=== PATIENT | female | born 1960 | race Caucasian/White ===

== ENCOUNTER 2020-07-11 16:33 | Outpatient (CLI) | payer OTHER, SELFPAY ==
--- NOTE | ~2020-07-11 | MM_ITS ---
EXAMINATION: MM screening m[facility]ille BI w celio HISTORY: Screening TECHNIQUE: Craniocaudal and mediolateral oblique 3-D tomosynthesis images were obtained and synthetic 2-D images were generated. CAD analysis was submitted and interpreted. COMPARISON: Comparison to multiple prior studies sequentially, with oldest reviewed study dated 10/2014. BREAST PARENCHYMAL COMPOSITION: There are scattered areas of fibroglandular density. FINDINGS: There is no evidence of suspicious mass, calcification, or architectural distortion to sugg est malignancy in either breast. There has been no suspicious interval change. IMPRESSION: 1. No mammographic evidence of malignancy. 2. Recommend routine screening mammography in one year. BI-RADS Category 1: Negative Reviewed, dictated and finalized at location A. AIDE
== END 2020-07-11 16:34 | disposition home or self-care (01) ==
LOC: ANHIMG 16:34
PROVIDERS: PCP Internal Medicine; Visit Provider Internal Medicine
DX: Z12.31 Encounter for screening mammogram for malignant neoplasm of breast (principal)
CPT/HCPCS: 77063; 77067

== ENCOUNTER 2021-02-28 14:47 | Outpatient (CLI) | payer OTHER, SELFPAY ==
--- NOTE | 2021-02-28 | ECHO_ITS ---
Patient Info Name: Samantha Dominguez Age: 60 years : 1960 Gender: Female Ht: 65 in Wt: 205 lbs BSA: 2.10 m2 HR: 78 bpm BP: 164 / 109 mmHg Heart Rhythm: Sinus Rhythm Technical Quality: Fair Exam Date: 02/28/2021 3:49 PM Exam Location: [facility] Pulmonary Patient Status: Outpatient Admit Date: 02/28/2021 Staff Ordering Physician: Xochitl Hammond MD Stapler Hand: Janey Bruner RDCS Attending Provider: Xochitl Hammond MD Referring Physician: Luis Enrique ELLISON; Exam Type: CA echo doppler color flow Study Info Indications - PREMATURE HEART BEATS Complete two-dimensional, color flow and Doppler transthoracic echocardiogram is performed. Summary 1. Complete two-dimensional, color flow and Doppler transthoracic echocardiogram is performed. 2. Left ventricular chamber dimension is normal. 3. Left ventricular systolic function is normal, estimated at 55-60%. 4. The left ventricular diastolic function is grade I diastolic dysfunction. 5. There is no aortic valve stenosis. 6. There is trace tricuspid valve regurgitation. 7. No pulmonary hypertension, estimated pulmonary arterial systolic pressure is 19 mmHg. Left Ventricle Left ventricular chamber dimension is normal. Left ventricular systolic function is normal, estimated at 55-60%. There is no increased left ventricular wall thickness. The left ventricular diastolic function is grade I diastolic dysfunction. Right Ventricle Right ventricular chamber dimension is normal. Right ventricular systolic function is normal. Left Atria Left atrial chamber dimension is normal. Right Atria Right atrial chamber dimension is normal. Aortic Valve The aortic valve is not well visualized. There is no aortic valve stenosis. There is no aortic valve regurgitation. Pulmonic Valve The pulmonic valve is not well visualized. Mitral Valve The mitral valve has normal leaflets. There is trace mitral valve regurgitation. The mitral valve annulus is mildly calcified. Tricuspid Valve The tricuspid valve leaflets are normal. There is trace tricuspid valve regurgitation. No pulmonary hypertension, estimated pulmonary arterial systolic pressure is 19 mmHg. Pericardium/Pleural The pericardium appears normal. There is no pericardial effusion. Inferior Vena Cava Normal inferior vena cava with >50% collapse upon inspiration consistent with normal right atrial pressure, 5 mmHg. Aorta The aortic root size at the sinus of Valsalva is normal. There is mild aortic atherosclerosis. Left Ventricular Outflow Tract Name Value Normal LVOT 2D LVOT Diameter 2.0 cm LVOT Doppler LVOT Peak Gradient 4 mmHg LVOT Mean Gradient 3 mmHg LVOT VTI 22 cm LVOT VTI/AV VTI Ratio 0.9 LVOT Stroke Volume 67 ml LVOT CO 14.4 l/min LVOT CI 6.8 l/min/m2 Pulmonic Valve Name
== END 2021-02-28 14:48 | disposition home or self-care (01) ==
PROVIDERS: PCP Internal Medicine; Visit Provider Internal Medicine
DX: I49.3 Ventricular premature depolarization (principal)
CPT/HCPCS: 93306

== ENCOUNTER 2021-03-12 10:15 | Outpatient (CLI) | payer OTHER, SELFPAY ==
--- NOTE | 2021-03-12 | EST_ITS ---
Patient Info Name: Samantha Dominguez Age: 60 years : 1960 Gender: Female Ht: 65 in Wt: 206 lbs BSA: 2.11 m2 Exam Date: 03/12/2021 10:33 AM Exam Location: [facility] Stress Patient Status: Outpatient Admit Date: 03/12/2021 Staff Ordering Physician: JanuaryXochitl MD Attending Provider: JanuaryXochitl MD Exercise Technologist: Leigha Tierney RDCS Exercise Physician: Priyank Ann MD Exam Type: CA stress test treadmill Study Info Indications R94.31 - Abnormal electrocardiogram ECG EKG A treadmill exercise stress test was performed. Summary 1. Normal ST segment response to stress. 2. Below average exercise capacity for age. 3. Hypertensive blood pressure response exercise. Protocol: [facility] Stress ECG Details Stage: REST Duration (min): 2 min : 56 sec Speed (mph): 0.0 Grade (%): 0 HR (bpm): 93 SBP (mmHg): 168 DBP (mmHg): 107 METS: --- Stage: REST Duration (min): 3 min : 45 sec Speed (mph): 0.0 Grade (%): 0 HR (bpm): 106 SBP (mmHg): 168 DBP (mmHg): 107 METS: --- Stage: STAGE 1 Duration (min): 1 min : 0 sec Speed (mph): 1.7 Grade (%): 10 HR (bpm): 113 SBP (mmHg): 168 DBP (mmHg): 107 METS: --- Stage: STAGE 1 Duration (min): 2 min : 0 sec Speed (mph): 1.7 Grade (%): 10 HR (bpm): 122 SBP (mmHg): 168 DBP (mmHg): 107 METS: --- Stage: STAGE 1 Duration (min): 3 min : 0 sec Speed (mph): 1.7 Grade (%): 10 HR (bpm): 130 SBP (mmHg): 197 DBP (mmHg): 92 METS: --- Stage: STAGE 2 Duration (min): 1 min : 0 sec Speed (mph): 2.5 Grade (%): 12 HR (bpm): 137 SBP (mmHg): 197 DBP (mmHg): 92 METS: --- Stage: STAGE 2 Duration (min): 1 min : 5 sec Speed (mph): 2.5 Grade (%): 12 HR (bpm): 138 SBP (mmHg): 197 DBP (mmHg): 92 METS: --- Stage: RECOVERY Duration (min): 0 min : 54 sec Speed (mph): 0.0 Grade (%): 0 HR (bpm): 131 SBP (mmHg): 211 DBP (mmHg): 80 METS: --- Stage: RECOVERY Duration (min): 1 min : 54 sec Speed (mph): 0.0 Grade (%): 0 HR (bpm): 119 SBP (mmHg): 211 DBP (mmHg): 80 METS: --- Stage: RECOVERY Duration (min): 2 min : 54 sec Speed (mph): 0.0 Grade (%): 0 HR (bpm): 105 SBP (mmHg): 203 DBP (mmHg): 87 METS: --- Stage: RECOVERY Duration (min): 3 min : 54 sec Speed (mph): 0.0 Grade (%): 0 HR (bpm): 106 SBP (mmHg): 203 DBP (mmHg): 87 METS: --- Stage: RECOVERY Duration (min): 4 min : 49 sec Speed (mph): 0.0 Grade (%): 0 HR (bpm): 103 SBP (mmHg): 197 DBP (mmHg): 92 METS: --- Rest HR: 106 bpm Peak HR: 139 bpm Rest Sys BP: 168 mmHg Peak Sys BP: 211 mmHg Max Pred HR: 161 bpm % Max Pred HR: 86 % Target HR: 137 bpm Max RPP: 29,329 bpm*mmHg Thomas Score: 1 Target HR Summary: Patient's target heart rate
== END 2021-03-12 10:16 | disposition home or self-care (01) ==
PROVIDERS: PCP Internal Medicine; Visit Provider Internal Medicine
DX: I49.40 Unspecified premature depolarization (principal); R94.31 Abnormal electrocardiogram [ECG] [EKG]
CPT/HCPCS: 93017

== ENCOUNTER 2021-08-21 14:55 | Outpatient (CLI) | payer OTHER, SELFPAY ==
--- NOTE | ~2021-08-21 | MM_ITS ---
EXAMINATION: MM screening mireille BI w celio HISTORY: Screening mammogram TECHNIQUE: Craniocaudal and mediolateral oblique 3-D tomosynthesis images were obtained and synthetic 2-D images were generated. CAD analysis was submitted and interpreted. COMPARISON: 07/11/2020, 05/31/2019 bilateral screening mammogram examinations BREAST PARENCHYMAL COMPOSITION: There are scattered areas of fibroglandular density. FINDINGS: There is no evidence of suspicious mass, calcification, or architectural distortion to sugg est malignancy in either breast. There has been no suspicious interval change. IMPRESSION: 1. No mammographic evidence of malignancy. 2. Recommend routine screening mammography in one year. BI-RADS Category 1: Negative Reviewed, dictated and finalized at location A. ILIZER SUPERVISOR
== END 2021-08-21 14:56 | disposition home or self-care (01) ==
LOC: ANHIMG 14:58
PROVIDERS: PCP Internal Medicine; Visit Provider Internal Medicine
DX: Z12.31 Encounter for screening mammogram for malignant neoplasm of breast (principal)
CPT/HCPCS: 77063; 77067

== ENCOUNTER 2023-02-02 10:14 | Outpatient (CLI) | payer OTHER, SELFPAY ==
--- NOTE | ~2023-02-02 | MM_ITS ---
EXAMINATION: MM screening [facility] BI w celio HISTORY: Screening mammogram TECHNIQUE: Craniocaudal and mediolateral oblique 3-D tomosynthesis images were obtained and synthetic 2-D images were generated. CAD analysis was submitted and interpreted. COMPARISON: 08/21/2021, 07/11/2020, 05/31/2019 BREAST PARENCHYMAL COMPOSITION: There are scattered areas of fibroglandular density. FINDINGS: No suspicious mass, calcification, or architectural distortion are identified in either philip ast to suggest malignancy. There has been no suspicious interval change. IMPRESSION: 1. No mammographic evidence of malignancy. 2. Recommend routine screening mammography in one year. BI-RADS Category 1: Negative Reviewed, dictated and finalized at location A.
== END 2023-02-02 10:15 | disposition home or self-care (01) ==
LOC: ANHIMG 10:15
PROVIDERS: PCP Internal Medicine; Visit Provider Internal Medicine
DX: Z12.31 Encounter for screening mammogram for malignant neoplasm of breast (principal)
CPT/HCPCS: 77063; 77067

== ENCOUNTER 2023-02-03 10:26 | Emergency (ER) | payer OTHER, SELFPAY ==
--- NOTE | 2023-02-03 10:40 | ED.FEMALEGU ---
HPI - Female Genitourinary General Chief complaint: Urogenital-Female Stated complaint: Female Urogenital Time Seen by Provider: 02/03/23 11:17 Source: patient and RN notes reviewed Mode of arrival: ambulatory Limitations: no limitations History of Present Illness HPI Narrative: 62 year old female with history of diabetes presents with concern for urinary frequency, urgency, dysuria. She reports she is having vaginal itching for which she just started deqz-dri-cfvccoa yeast infection treatment. She denies back pain, reports nausea. Reports intermittent chills. MD elicited complaint: UTI Related Data Home Medications Medication Instructions Recorded Confirmed dulaglutide 0.75 mg/0.5 mL mg subcut 02/03/23 subcutaneous pen injector (Trulicity) lisinopril 10 mg tablet mg 02/03/23 lithium carbonate 300 mg capsule mg 02/03/23 quetiapine 100 mg tablet mg 02/03/23 tramadol 50 mg tablet mg 02/03/23 Allergies Allergy/AdvReac Type Severity Reaction Status Date / Time No Known Allergies Allergy Verified 08/27/17 07:45 Review of Systems Review of Systems: CONSTITUTIONAL: Denies malaise, sweats, or fever. Reports intermittent chills CARDIOVASCULAR: Denies chest pain, palpitations, or edema. RESPIRATORY: Denies cough or dyspnea. GASTROINTESTINAL: Denies abdominal pain, nausea, vomiting, diarrhea GENITOURINARY: Reports dysuria, frequency, urgency. Denies flank pain or hematuria. SKIN: Reports vaginal itching MUSCULOSKELETAL: Denies back pain or myalgia. All systems reviewed & are unremarkable except as noted in HPI and below PMFSH Comments At time of signature, agree with nursing past medical, surgical, social and family history. There is no relevant family history pertinent to the presenting complaint Exam Narrative: GENERAL: Well-appearing, well-nourished, and in no acute distress. HEAD: Normocephalic. EYES: PERRLA, conjunctivae clear. NECK: Supple. No lymphadenopathy CHEST: Clear to auscultation. No respiratory distress. HEART: Regular rate and rhythm. ABDOMEN: Soft, nontender upon palpation, nondistended, normal active bowel sounds, no palpable or pulsatile masses, no guarding. No CVA tenderness SKIN: Warm, dry, no rash. NEURO: Alert and oriented x3. PSYCH: Normal mood and affect Course Course Emergency Course: Patient is aware of diagnosis, understands and agrees to treatment plan. Anticipatory guidance given. Patient agrees to follow-up as directed and is aware of reasons to seek care at the emergency department. Portions of this record may have been created with voice recognition software Level of Care: Express Care Visit Vital Signs Vital signs: Reviewed. MDM - Female Genitourinary MDM Narrative Medical decision making narrative: Exam findings and UA show no acute concerns or changes; patient is non-toxic appearing and is in no distress. Patient is appropriate for outpatient treatment and follow-up. Differential Diagnosis Differential diagnosis: Likely urinary tract infection and cystitis Critical Care Time Critical Care Time Critical Care Time: No Discharge Plan Discharge Clinical Impression: Urinary tract infection Patient Disposition: Home, Self-Care Condition: Stable Instructions: Antibiotic Form, Urinary Tract Infection in Women (ED) Additional Instructions: We will send a urine culture to the lab; if the culture identifies an organism that the prescribed antibiotic will not treat, you will receive a phone call from an urgent care staff member and an appropriate antibiotic will be prescribed. -Your symptoms should begin to improve within a day of starting antibiotics. But you should finish all the antibiotic pills you get. Otherwise your infection might come back. -Also recommend: increase water intake. Tylenol/ibuprofen as needed for pain or fever -Follow-up with your primary care provider for urine recheck or seek ER visit if condition worsens with hig
[2023-02-03 10:47] VITALS: BP 164/102; PULSE 98; RESP 20; TEMP 36.4; O2SAT 98
== END 2023-02-03 11:30 | disposition home or self-care (01) ==
PROVIDERS: Emergency Provider Nurse Practitioner; PCP Internal Medicine
DX: N39.0 Urinary tract infection, site not specified (principal); E78.00 Pure hypercholesterolemia, unspecified; I10 Essential (primary) hypertension
CPT/HCPCS: 81003; 87086; 87088; 99213; G0463

== ENCOUNTER 2023-03-26 09:15 | Outpatient (RCR) | payer OTHER, SELFPAY | END 2023-06-15 09:10 | disposition home or self-care (01) | LOC: ANHDMC 09:15 | PROVIDERS: PCP Internal Medicine; Visit Provider Internal Medicine | DX: E11.65 Type 2 diabetes mellitus with hyperglycemia (principal); Z71.89 Other specified counseling | CPT/HCPCS: 95249; G0108 ==

== ENCOUNTER 2023-06-16 09:17 | Outpatient (RCR) | payer OTHER, SELFPAY | END 2023-08-31 09:48 | disposition home or self-care (01) | LOC: ANHDMC 09:17 | PROVIDERS: PCP Internal Medicine; Visit Provider Internal Medicine | DX: E11.65 Type 2 diabetes mellitus with hyperglycemia (principal); Z71.89 Other specified counseling | CPT/HCPCS: G0108 ==

== ENCOUNTER 2023-12-24 09:10 | Emergency (ER) | payer OTHER, SELFPAY ==
[2023-12-24 09:16] VITALS: BP 154/91; PULSE 82; RESP 16; TEMP 36.3; O2SAT 99
--- NOTE | 2023-12-24 09:17 | ED.EYEPROB ---
HPI - Eye Problem General Chief complaint: Eye Problems Stated complaint: pink eye? Source: patient Mode of arrival: ambulatory Limitations: no limitations History of Present Illness HPI Narrative: 63-year-old female presented for concern for pinkeye due to exposure yesterday. States eyes feel dry. Patient currently denies any redness, itching or burning, drainage or swelling to the eyes. Denies eye pain, vision changes, photophobia or foreign body sensation. She states she washed her hands frequently yesterday as well. She has used Visine drops throughout the night. MD chief complaint: eye pain Related Data Home Medications Medication Instructions Recorded Confirmed lisinopril 10 mg tablet mg 02/03/23 quetiapine 100 mg tablet mg 02/03/23 tramadol 50 mg tablet mg 02/03/23 semaglutide 2 mg/dose (8 mg/3 mL) mg subcut 12/24/23 12/24/23 subcutaneous pen injector (Ozempic) Allergies Allergy/AdvReac Type Severity Reaction Status Date / Time No Known Allergies Allergy Verified 12/24/23 09:24 Review of Systems Review of Systems: CONSTITUTIONAL: Denies body aches, fever, chills EYES: denies eye swelling, drainage, redness or pain, FB sensation, photophobia, visual changes ENT: Denies rhinorrhea, congestion, sore throat, or otalgia. RESPIRATORY: Denies cough or dyspnea. SKIN: Denies rash, itching, or wounds. MUSCULOSKELETAL: Denies back pain, joint pain, or myalgia. NEUROLOGIC: Denies headache All systems reviewed & are unremarkable except as noted in HPI and below PMFSH Past Medical History Medical History (Updated 12/24/23 @ 09:34 by Chloe Kramer, LAMAR) Diabetes type 2, controlled Comments At time of signature, I have reviewed and agree with nursing past medical, surgical, social and family history unless otherwise noted. Please see nursing chart for further information. There is no relevant family history pertinent to the presenting complaint Exam Narrative: GENERAL: Well-appearing HEAD: Normocephalic, atraumatic. EYES: No conjunctival injection, no eye lid swelling/redness, no stye formation, no drainage; PERRLA EOMI. Lid eversion shows no fb. ENT: Mucous membranes pink and moist. No rhinorrhea. TMs normal bilaterally. Throat normal. Uvula midline. CHEST: Clear to auscultation. HEART: Regular rate and rhythm. SKIN: Warm, dry, no rash. Normal skin turgor. NEURO: No focal deficits. Alert and oriented x3 PSYCH: Normal affect. Course Course Emergency Course: Patient is aware of diagnosis, understands and agrees to treatment plan. Anticipatory guidance given. Patient agrees to follow-up as directed and is aware of reasons to seek care at the emergency department. Portions of this record may have been created with voice recognition software Level of Care: Express Care Visit Vital Signs Vital signs: Vital Signs Temperature 97.3 F L 12/24/23 09:16 Pulse Rate 82 12/24/23 09:16 Respiratory Rate 16 12/24/23 09:16 Blood Pressure 154/91 H 12/24/23 09:16 Pulse Oximetry 99 12/24/23 09:16 Oxygen Delivery Room Air 12/24/23 09:16 Temperature 97.3 F L 12/24/23 09:16 Pulse Rate 82 12/24/23 09:16 Respiratory Rate 16 12/24/23 09:16 Blood Pressure 154/91 H 12/24/23 09:16 Pulse Oximetry 99 12/24/23 09:16 Oxygen Delivery Room Air 12/24/23 09:16 MDM - Eye Problem MDM Narrative Medical decision making narrative: Discussed physical exam findings, provided patient reassurance she does not appear to have bacterial conjunctivitis at this time. Advised supportive measures and signs/symptoms to go to the ER. Pt is appropriate for outpt treatment and f/u. Differential Diagnosis Differential diagnosis: Likely corneal abrasion, conjunctivitis, acute iritis and other Discharge Plan Discharge Clinical Impression: Dry eyes Patient Disposition: Home, Self-Care Condition: Stable Instructions: Antibiotic Form, Conjunctivitis (ED) Arnav
== END 2023-12-24 09:37 | disposition home or self-care (01) ==
PROVIDERS: Emergency Provider Nurse Practitioner Family; PCP Internal Medicine
DX: H04.123 Dry eye syndrome of bilateral lacrimal glands (principal); E11.9 Type 2 diabetes mellitus without complications
CPT/HCPCS: 99212; G0463

== ENCOUNTER 2024-01-19 02:07 | Day surgery (SDC) | payer OTHER, SELFPAY ==
[2024-01-04 15:02] VITALS: BMI 32.3
[2024-01-19 07:48] VITALS: BP 147/96; PULSE 94; RESP 18; TEMP 36.3; O2SAT 100
[2024-01-19] MEDS: LACTATED RINGERS 1,000 ML 150 ML IV CONT (07:54)
--- NOTE | 2024-01-19 08:14 | WPDANESEPP ---
Anes - Eval Pre Procedure Procedure: Operation Date: 01/19/24 09:00 Proposed Procedures p Screening Colonoscopy - Rigoberto Damon MD Date/Time: 01/19/24 08:14 Pre Op Diagnosis: Neoplasm screening Patient Data Age: 63 Gender: F Height: 1.68 m Weight: 88.4 kg Last Vital Signs Temp 36.3 C L 01/19/24 07:48 Pulse 94 01/19/24 07:48 Resp 18 01/19/24 07:48 BP 147/96 H 01/19/24 07:48 Pulse Ox 100 01/19/24 07:48 O2 Del Method Room Air 01/19/24 07:48 Allergies Allergy/AdvReac Type Severity Reaction Status Date / Time No Known Allergies Allergy Verified 01/19/24 07:44 Home Medications Medication Instructions Recorded Confirmed Type lisinopril 10 mg tablet 10 mg PO DAILY 02/03/23 01/04/24 History quetiapine 100 mg tablet 100 mg PO HS 02/03/23 01/04/24 History tramadol 50 mg tablet 50 mg PO TID PRN Pain 02/03/23 01/04/24 History semaglutide 2 mg/dose (8 mg/3 mL) 2 mg subcut WEEKLY 12/24/23 01/04/24 History subcutaneous pen injector (Ozempic) amlodipine 10 mg tablet 10 mg PO DAILY 01/04/24 01/04/24 History ezetimibe 10 mg tablet 10 mg PO DAILY 01/04/24 01/04/24 History metoprolol succinate 200 mg 200 mg PO DAILY 01/04/24 01/19/24 History tablet,extended release 24 hr rosuvastatin 40 mg tablet 40 mg PO HS 01/04/24 01/04/24 History Patient hx anesthesia problems: none Family hx anesthesia problems: none Results Review: All pre-operative results and documents have been reviewed as part of the pre-operative evaluation. [facility] Past Medical History Medical History (Updated 01/19/24 @ 08:15 by Rasheeda Murray CRNA) Anxiety Arthritis Depression Diabetes type 2, controlled HLD (hyperlipidemia) HTN (hypertension) Morbid obesity with BMI of 50.0-59.9, adult Social History Social History Smoking status: Never smoker Alcohol intake: never Substance use: never Substance use type: does not use Living arrangements: with family Spiritual care concerns: No Exam Day of Procedure 01/19/24 08:14 Patient weight: obese Heart: regular rate and rhythm Lungs: clear to auscultation Airway: Mallampati scale class 1 Neurological: alert and oriented
--- NOTE | 2024-01-19 08:36 | PM.HPGS ---
History of Present Illness History of Present Illness Consent: Risks, benefits, and alternatives have been discussed and questions answered. Patient agrees to proceed with procedure. Chief complaint: Neoplasm screening Narrative: Samantha Dominguez is a 63 year old female here for colonoscopy, last one 11 years ago Review of Systems Review of Systems: All systems reviewed & are unremarkable except as noted in HPI and below PMFSH Past Medical History Medical History (Updated 01/19/24 @ 08:37 by Rigoberto Damon MD) Anxiety Arthritis Colon cancer screening Depression Diabetes type 2, controlled HLD (hyperlipidemia) HTN (hypertension) Morbid obesity with BMI of 50.0-59.9, adult Social History Social History Smoking status: Never smoker Alcohol intake: never Substance use: never Substance use type: does not use Living arrangements: with family Spiritual care concerns: No Meds Home Medications and Allergies Home Medications Medication Instructions Recorded Confirmed Type lisinopril 10 mg tablet 10 mg PO DAILY 02/03/23 01/04/24 History quetiapine 100 mg tablet 100 mg PO HS 02/03/23 01/04/24 History tramadol 50 mg tablet 50 mg PO TID PRN Pain 02/03/23 01/04/24 History semaglutide 2 mg/dose (8 mg/3 mL) 2 mg subcut WEEKLY 12/24/23 01/04/24 History subcutaneous pen injector (Ozempic) amlodipine 10 mg tablet 10 mg PO DAILY 01/04/24 01/04/24 History ezetimibe 10 mg tablet 10 mg PO DAILY 01/04/24 01/04/24 History metoprolol succinate 200 mg 200 mg PO DAILY 01/04/24 01/19/24 History tablet,extended release 24 hr rosuvastatin 40 mg tablet 40 mg PO HS 01/04/24 01/04/24 History Allergies Allergy/AdvReac Type Severity Reaction Status Date / Time No Known Allergies Allergy Verified 01/19/24 07:44 Vital Signs Vital Signs - 24 hr 01/19/24 07:48 Temperature 97.3 F L Pulse Rate 94 Respiratory Rate 18 Blood Pressure 147/96 H Pulse Oximetry 100 Oxygen Delivery Room Air Exam Const: General: comfortable and no acute distress HENMT: Face/Nose/Sinus: Normal nares present Eyes: General: appearance normal, both eyes and all related structures Neck: Neck: no JVD Resp: Auscultation: clear to auscultation bilaterally Cardio: Rate: regular rate Rhythm: regular rhythm GI: Inspection: non-distended GI Palp: Yes Soft to palpation Skin: General skin exam: normal color Neuro: General: gait normal Speech: normal speech Extrem: General: normal to inspection Psych: Mental Status: mental status grossly normal Assessment and Plan Assessment and plan (1) Colon cancer screening: Code(s): Z12.11 - Encounter for screening for malignant neoplasm of colon Status: Acute Assessment and Plan: colonoscopy
[2024-01-19 08:54] VITALS: BP 112/77; PULSE 80; RESP 22; O2SAT 94
[2024-01-19 09:04] VITALS: BP 111/83; PULSE 82; RESP 15; O2SAT 94
--- NOTE | 2024-01-19 09:04 | P.PNAN_ITS ---
Anes - Eval Final PreProcedure Day of Procedure 01/19/24 09:04 ASA classification: III Emergent: no Anesthetic plan: proceed Anesthesia type and monitoring: general and standard monitoring Results Review: All pre-operative results and documents have been reviewed as part of the pre- operative evaluation. Informed Consent: The patient's anesthetic plan and its attendant risks and benefits were discussed with the patient/family/POA. Questions were solicited and answers provided to the satisfaction of the patient/family/POA.
[2024-01-19 09:14] VITALS: BP 140/84; PULSE 76; RESP 16; O2SAT 98
== END 2024-01-19 09:25 | disposition home or self-care (01) ==
PROVIDERS: PCP Internal Medicine; Visit Provider Internal Medicine Gastroenterology
PROC: 0DJD8ZZ Inspection of Lower Intestinal Tract, Via Natural or Artificial Opening Endoscopic (ICD-10-PCS; CPT 45378; principal; 2024-01-19 09:00)
DX: Z12.11 Encounter for screening for malignant neoplasm of colon (principal); D12.2 Benign neoplasm of ascending colon; K64.8 Other hemorrhoids; I10 Essential (primary) hypertension; E11.9 Type 2 diabetes mellitus without complications; E78.5 Hyperlipidemia, unspecified; F41.9 Anxiety disorder, unspecified; F32.A Depression, unspecified; E66.9 Obesity, unspecified; Z68.31 Body mass index [BMI] 31.0-31.9, adult; Z79.85 Long-term (current) use of injectable non-insulin antidiabetic drugs
CPT/HCPCS: 45385; 88305; J2704; J7120

== ENCOUNTER 2024-10-25 10:11 | Emergency (ER) | payer OTHER, SELFPAY ==
--- NOTE | 2024-10-25 10:15 | ED.FEMALEGU ---
HPI - Female Genitourinary General Chief complaint: Urogenital-Female Stated complaint: Bladder Infection Time Seen by Provider: 10/25/24 10:24 Source: patient Mode of arrival: ambulatory Limitations: no limitations History of Present Illness HPI Narrative: Samantha is a 64-year-old female patient presenting to the clinic today with complaints of possible urinary tract infection. She reports over the last 2 days she has had some burning with urination, frequency, urgency, low back pain, and fatigue. Denies any fevers or chills. No nausea vomiting or diarrhea. No concern for STIs. Related Data Home Medications ?Medication ?Instructions ?Recorded ?Confirmed ?Last Taken ?Type lisinopril 10 mg tablet 10 mg PO DAILY 02/03/23 01/04/24 Unknown History quetiapine 100 mg tablet 100 mg PO HS 02/03/23 01/04/24 Unknown History tramadol 50 mg tablet 50 mg PO TID PRN Pain 02/03/23 01/04/24 Unknown History semaglutide 2 mg/dose (8 mg/3 mL) 2 mg subcut WEEKLY 12/24/23 01/04/24 Unknown History subcutaneous pen injector (Ozempic) amlodipine 10 mg tablet 10 mg PO DAILY 01/04/24 01/04/24 Unknown History ezetimibe 10 mg tablet 10 mg PO DAILY 01/04/24 01/04/24 Unknown History metoprolol succinate 200 mg 200 mg PO DAILY 01/04/24 01/19/24 01/19/24 History tablet,extended release 24 hr rosuvastatin 40 mg tablet 40 mg PO HS 01/04/24 01/04/24 Unknown History Allergies Allergy/AdvReac Type Severity Reaction Status Date / Time No Known Allergies Allergy Verified 10/25/24 10:21 Review of Systems Review of Systems: Pertinent positives per HPI. Patient denies any fever, chills, rash, headache, visual changes, dizziness, cough, runny nose, sore throat, shortness of breath, chest pain, palpitations, nausea, vomiting, diarrhea, constipation, abdominal pain. [facility] Past Medical History Medical History (Updated 10/25/24 @ 10:40 by Jovanni Arshad, LAMAR) Colon cancer screening Arthritis Depression Anxiety Morbid obesity with BMI of 50.0-59.9, adult HLD (hyperlipidemia) HTN (hypertension) Diabetes type 2, controlled Social History Social History Smoking status: Never smoker Alcohol intake: never Substance use: never Substance use type: does not use Living arrangements: with family Spiritual care concerns: No Comments At the time of my signature, I reviewed and agree with the nursing past medical, surgical, social, and family history. There is no relevant family history pertinent to the patient complaint. Exam Narrative: General: Well-developed, obese, in no apparent distress. Head: Normocephalic, atraumatic. Cardio: Regular rate and rhythm, s1 and s2 normal, no murmur appreciated. Resp: Clear to auscultation bilaterally, no rhonchi, rales, wheezing or rubs. Abdomen: Soft, pliable, bowel sounds present in all quadrants, non-tender to palpation, no organomegly, no CVAT tenderness. Course Course Emergency Course: Portions of this record may have been created with voice recognition software. Level of Care: Express Care Visit Vital Signs Vital signs: Vital Signs Temperature 36.5 C 10/25/24 10:20 Pulse Rate 81 10/25/24 10:20 Respiratory Rate 16 10/25/24 10:20 Blood Pressure 119/66 10/25/24 10:20 Pulse Oximetry 100 10/25/24 10:20 Oxygen Delivery Room Air 10/25/24 10:20 Temperature 36.5 C 10/25/24 10:20 Pulse Rate 81 10/25/24 10:20 Respiratory Rate 16 10/25/24 10:20 Blood Pressure 119/66 10/25/24 10:20 Pulse Oximetry 100 10/25/24 10:20 Oxygen Delivery Room Air 10/25/24 10:20 Vital signs reviewed MDM - Female Genitourinary MDM Narrative Medical decision making narrative: At the time of visit patient is resting comfortably on the exam table. Patient appears to be nontoxic. Labs: Urinalysis positive for 1+ leukocyte. We will send urine for culture. Plan: I suspect patient has UTI. Prescription for Augmentin was sent to the pharmacy. Supportive measures were discussed with the patient and they voiced understanding discharge instructions and agrees to treatment plan. Return precautions reviewed Differential Diagnosis Differential diagnosis: Likely urinary tract infection and cystitis Lab Data Labs: Lab Results 10/25/24 Range/Units 10:36 POC Urine Color Yellow POC Urine Clarity Clear POC Urine pH 6.0 POC Ur Specif [place] 1.020 POC Urine Protein Negative (Negative) POC Ur Glucose (UA) Negative (Negative) POC Urine Ketones Negative (Negative) POC Urine Blood Negative (Negative) POC Urine Nitrite Negative (Negative) POC Urine Bilirubin Negative (Negative) POC Urine Urobilinogen 0.2 POC U Leukocyte Esteras 1+ (Negative) Discharge Plan Discharge Clinical Impression: Acute UTI Patient Disposition: Home Condition: Stable Instructions: Antibiotic Form, Urinary Tract Infection in Older Adults (ED) Additional Instructions: Urinalysis positive for 1+ leukocytes. We will send urine for culture. Take Augmentin as prescribed Increase fluids and stay well hydrated Wipe front to back. May use wet wipes. Avoid tub baths If sexually active- pee before and after intercourse. Wear cotton panties Avoid tight clothing up against the genitals Follow up with your PCP in 1 week if symptoms persist. Patient Language: Croatian Prescriptions: New amoxicillin-pot clavulanate 875-125 mg tablet 1 tablet PO Q12H 7 Days Qty: 14 0RF No Action tramadol 50 mg tablet 50 mg PO TID PRN (Reason: Pain) quetiapine 100 mg tablet 100 mg PO HS lisinopril 10 mg tablet 10 mg PO DAILY Ozempic 2 mg/dose (8 mg/3 mL) pen injector 2 mg SUBCUT WEEKLY Patient Comments: takes on tuesdays rosuvastatin 40 mg tablet 40 mg PO HS ezetimibe 10 mg tablet 10 mg PO DAILY metoprolol succinate 200 mg tablet extended release 24 hr 200 mg PO DAILY amlodipine 10 mg tablet 10 mg PO DAILY Follow-up/Referrals: PHYSICIAN,ELECTRICAL ACCESSORIES II ASSEMBLER [Primary Care Provider] - Time of Disposition: 10:41 Quality NIHSS Nursing Documentation ED NIHSS nursing documentation: reviewed/agree
[2024-10-25 10:20] VITALS: BP 119/66; PULSE 81; RESP 16; TEMP 36.5; O2SAT 100
[2024-10-25 10:39] LABS: EDUAAPPEAR Clear; EDUABILI Negative (Negative); EDUABLOOD Negative (Negative); EDUACOLOR1 Yellow; EDUAGLUCOSE Negative (Negative); EDUAKETONE Negative (Negative); EDUALEUKO 1+ (Negative); EDUANITRATE Negative (Negative); EDUAPROTEIN Negative (Negative); EDUAUROBILI 0.2
--- OUTSIDE RECORDS SUMMARY | 2024-10-25 11:19 | XMS_ITS | Clinical Summary ---
Author Organization [facility] Address [address] [place] [address] Care Team Providers Care Bi Data Architect Name Role Phone Nikolay Sandoval MD Primary Care Provider [phone] Allergies No known active allergies Medications metoprolol succinate ER (TOPROL-XL) 200 MG 24 hr tablet 0.5 tablets (100 mg total). Patient takes 100mg once a day. 4 Active amLODIPine (NORVASC) 10 MG tablet Oral 4 Active busPIRone (BUSPAR) 30 MG tablet Oral 4 Active Continuous Glucose Sensor (FREESTYLE KAYLA 2 SENSOR) [facility] 5 Active ezetimibe (ZETIA) 10 MG tablet Oral 4 Active pioglitazone (ACTOS) 30 MG tablet Take 1 tablet (30 mg total) by mouth daily. Active Semaglutide (OZEMPIC, 2 MG/DOSE, SC) Active rosuvastatin (CRESTOR) 40 MG tabletIndications: Mixed hyperlipidemia Take 1 tablet (40 mg total) by mouth nightly at bedtime. 30 tablet 2 5 Active lisinopril (PRINIVIL) 10 MG tabletIndications: Hypertension, unspecified type Take 4 tablets (40 mg total) by mouth daily. 120 tablet 1 5 Active traMADol (ULTRAM) 50 MG tabletIndications: Chronic Pain Take 1 tablet (50 mg total) by mouth every 6 (six) hours as needed for Pain. Indications : Chronic Pain 120 tablet 5 Active lisinopril (PRINIVIL) 10 MG tablet 4 tablets (40 mg total). 4 10/25/19 25 Discontin ued(Reord er) traMADol (ULTRAM) 50 MG tabletIndications: Chronic Pain Take 1 tablet (50 mg total) by mouth every 6 (six) hours as needed for Pain. Indications : Chronic Pain 120 tablet 5 10/25/19 25 Discontin ued(Reord er) Encounters Date Type Department Care Team Description 10/24/[address] [phone] Nikolay Sandoval MD Refill Request 09/19/[address] [phone] Nikolay Sandoval MD Refill Request 09/14/[address] [phone] Nikolay Sandoval MD Refill Request 09/07/[address] [phone] Nikolay Sandoval MD Record Request 09/06/2024 [employer] Message Enc [address] [phone] Nikolay Sandoval MD Colonoscopy 08/09/2024 10:00 AM SECURITY PUBLIC SAFETY OFFICER Office Visit [address] [phone] Nikolay Sandoval MD Physical (Patient is present to Establish care and meet the Provider) 08/09/2024 Travel from Last 3 Months Immunizations Immunization Administration Dates Next Due Arexvy Respiratory Syncytial Virus (RSV, adjuvanted) 0.5 mL, PF 06/18/2023 FLUCELVAX (ccIIV3, TRIVALENT, 0.5mL) 03/07/2024, 03/20/2020 Influenza (Generic) 02/28/2016,04/13/2015,2013 Influenza Adult (Generic) 04/04/2023,,04/09/2021,2020,03/20/2020,03/29/2019,04/29/2018,1 06/29/2016 MODERNA COVID-19 (12+), MRNA , LNP-S, PF, 50 MCG/0.5 ML (SPIKEVAX) 06/18/2023 Pneumococcal (Pneumovax 23) 08/17/2019 Shingrix 04/25/2021,02/23/2021 Tdap (Generic) 12/16/2018 Varicella (Varivax) 04/29/2021 Family History Relation Status Comments Father Mother Social History Tobacco Use Types Packs/Day Years Used Date Smoking Tobacco: Never Passive Smoke Exposure: Never Smokeless Tobacco: Never Tobacco Cessation:Counseling Given: No Alcohol Use Standard Drinks/Week Comments Never 0 (1 standard drink = 0.6 oz pur e alcohol) PHQ-2 Answer Date Recorded Patient Health Questionnaire-2 Score 0 08/09/2024 Comments Unknown Sex and Gender Information Value Date Recorded Sex Assigned at Not on file Legal Sex Female 7:08 PM CDT Gender Identity Not on file Sexual Orientation Not on file Last Filed Vital Signs Vital Sign Reading Time Taken Comments Blood Pressure 121/86 08/09/2024 10:18 AM SECURITY PUBLIC SAFETY OFFICER Pulse 84 08/09/2024 10:18 AM SECURITY PUBLIC SAFETY OFFICER Temperature 37 C (98.6 F) 08/09/2024 10:18 AM SECURITY PUBLIC SAFETY OFFICER Respiratory Rate - - Oxygen Saturation 97% 08/09/2024 10:18 AM SECURITY PUBLIC SAFETY OFFICER Inhaled Oxygen Concentration - - Weight 89.4 kg (197 lb) 08/09/2024 10:18 AM SECURITY PUBLIC SAFETY OFFICER Height 167.6 cm (5' 6 ) 08/09/2024 10:18 AM SECURITY PUBLIC SAFETY OFFICER Body Mass Index 31.8 08/09/2024 10:18 AM SECURITY PUBLIC SAFETY OFFICER Plan of Treatment Health Maintenance Due Date Last Done Comments Kidney Health Evaluation 1961 Hemoglobin A1C 1961 Lipid Panel 1961 Annual Physical 1964 Diabetes: Retinopathy Eye Exam 1979 Hepatitis C 1979 Cervical Cancer Screening Pap with HPV Testing (Age 30 to 64) Every 5 Years 1991 Pneumococcal Vaccine: 50+ Years (2 of 2 - PCV) 08/17/2020 08/17/2019 Cervical Cancer Screening Pap Smear (Age 30 to 64) Every 3 Years 10/30/2023 10/29/2020 Cervical Cancer Screening with HPV 10/30/2023 Mammogram Screening 07/21/2026 07/21/2024 DTaP, Tdap and Td Vaccines (2 - Td or Tdap) 12/16/2028 12/16/2018 Colorectal Cancer Screening Colonoscopy (10 Years) 01/18/2034 01/19/2024 Zoster Vaccines Completed 04/25/2021, 02/23/2021 RSV Immunization or 60+ Years Completed 06/18/2023 COVID-19 Vaccine Completed 03/07/2024, , 01/17/2022, Additional history exists PHQ-2 (Physician [place]) Completed 08/09/2024 Meningococcal B Vaccine Aged Out No l onger eligible based on patient's age to complete this topic Meningococcal Vaccine Aged Out No fide salbador eligible based on patient's age to complete this topic RSV Immunizations Under 20 Months Aged Out No longer eligible based on patient's age to complete this topic Procedures Procedure Name Priority Date/Time Associated Diagnosis Comments MAMMOGRAM GENERIC (SCAN ORDER) 07/21/2024 COLONOSCOPY GENERIC (SCAN ORDER) 01/19/2024 from Last 3 Months or Most Recently Relevant to Health Maintenance Results * MAMMOGRAM GENERIC (SCAN ORDER) (07/21/2024) Anatomical Region Laterality Modality Other 07/21/2024 [facility] Scanned SCANNING Final Resu lt * COLONOSCOPY GENERIC (SCAN ORDER) (01/19/2024) 01/19/2024 [facility] Scanned SCANNING Final Resu lt from Last 3 Months or Most Recently Relevant to Health Maintenance Insurance [facility] Care Teams Bi Data Architect Relationship Specialty Start Date End Date Nikolay Sandoval MD [address] [place] [address] [phone] PCP - General FAMILY PRACTICE 08/09/24
--- OUTSIDE RECORDS SUMMARY | 2024-10-25 11:19 | XMS_ITS | Encounter Summary ---
Author Organization [facility] Address Count includes the [facility] [place] [address] Care Team Providers Care Catalyst Operator Chief Name Role Phone Bonnie Sandoval MD Primary Care Provider [phone] Reason for Visit * Reason Onset Date Comments Refill Request 10/24/2024 Encounter Details Date Type Department Care Team (Late st Contact Info) Description 10/24/2024 Telephone [facility] Family [facility] [place] [phone] Bonnie Sandoval MD [address] [place] [address] Refill Request Social History Tobacco Use Types Packs/Day Years Used Date Smoking Tobacco: Never Passive Smoke Exposure: Never Smokeless Tobacco: Never Alcohol Use Standard Drinks/Week Comments Never 0 (1 standard drink = 0.6 oz pur e alcohol) PHQ-2 Answer Date Recorded Patient Health Questionnaire-2 Score 0 08/09/2024 Comments Unknown Sex and Gender Information Value Date Recorded Sex Assigned at Not on file Legal Sex Female 7:08 PM CDT Gender Identity Not on file Sexual Orientation Not on file documented as of this encounter Progress Notes * Rosa Ratliff - 10/24/2024 10:33 AM CDT Medication and strength: lisinopril (PRINIVIL) 10 MG tablet Semaglutide (OZEMPIC, 2 MG/DOSE, SC) traMADol (ULTRAM) 50 MG tablet [id number] - [place], [place] - [address] [[id number]] Call back #: [phone] Last office visit at this office: Last visit with BONNIE SANDOVAL in FAMILY PRACTICE was on: 08/09/2024 in [facility] Future appointment scheduled: No future appointments. documented in this encounter Plan of Treatment Not on file documented as of this encounter Visit Diagnoses Diagnosis Hypertension, unspecified type- Primary Pain Generalized pain documented in this encounter Care Teams Catalyst Operator Chief Relationship Specialty Start Date End Date Bonnie Sandoval MD [address] [place] [phone] PCP - General FAMILY PRACTICE 08/09/24 documented as of this encounter
--- OUTSIDE RECORDS SUMMARY | 2024-10-25 11:19 | XMS_ITS | Encounter Summary ---
Author Organization [facility] Address [facility] [place] [address] Care Team Providers Care Supervisor Volunteer Services Name Role Phone Nikolay Sandoval MD Primary Care Provider Encounter Details Date Type Department Care Team (Late st Contact Info) Description 09/06/2024 [employer] Message Enc [facility] Family Medicine - [place] [phone] Nikolay Sandoval MD [address] [place] [address] [phone] Colonoscopy Social History Tobacco Use Types Packs/Day Years [...] on file documented as of this encounter Plan of Treatment Not on file documented as of this encounter Visit Diagnoses Not on filedocumented in this encounter Care Teams Supervisor Volunteer Services Relationship Specialty Start Date End Date Nikolay Sandoval MD [address] [place] [address] [phone] PCP - General FAMILY PRACTICE 08/09/24 documented as of this encounter
--- OUTSIDE RECORDS SUMMARY | 2024-10-25 11:19 | XMS_ITS | Data Portability ---
Author Organization [facility] Address [address] [place] [address] Assessment Encounter Date Assessment Date Assessment LastModified by Organization Details LastModified Time 10/29/2020 10/29/2020 healthy female exam/menopaus e patient declines std testing pap done, discussed guidelines mammogram due in 3 mos colonoscopy due 2022 dexa ordered and encouraged Encouraged weight bearing exercise and 1500mg daily of Calcium with Vitamin D encouraged exercise, healthy diet, weightloss FU 1 year or prn [id number] Not available 10/31/2020 09:17:24 12/17/2021 12/17/2021 healthy female exam/menopaus e patient declines std testing pap due 2023 mammogram ordered for colonoscopy due next year dexa ordered and encouraged Encouraged weight bearing exercise and 1500mg daily of Calcium with Vitamin D FU 1 year or prn Not available 12/17/2021 20:23:41 Plan of Treatment Reminders Order Date Submit Date Provider Last Modified By Organization Details Last Modified Time Details Appointments None record ed. Lab None record ed. Referral None record ed. Procedures None record ed. Surgeries None record ed. Imaging None record ed. Medication Orders None record ed. Patient TargetsNo targets recorded. Patient InstructionsNo instructions recorded. Reason for Referral None Reported. Results Created Date Observation Date Name Description Value Unit Range Abnormal Flag Note LastModifiedBy Organization Detail LastModifiedTime 10/30/19 21 10/29/2020 pap, IG + HR HPV image guided Pap, HPV regardless of Pap result SEE RESULT S BELOW CASE REPOR T: Cytol ogy Gynec ologi kellie Repor t Case: [id number] Autho funmi lee Provi gabby: Cyndie William MD Colle cted: 10/29 1708 Order ing Locat ion: [place] [facility] log[facility] Recei eulalia: 10/30 0943 First Scree n: Demetra Jean Speci men: Scree nevin Pap - Image d, Cervi x STATE MENT OF ADEQU ACY: Satis facto ry for evalu ation Trans forma tion zone compo nent absen t FINAL DIAGN OSIS: Negat nri for Intra epith elial Lesio n or Malig nolan Elect namrata ngo jerome d by Demetra Jean on 021 at 7:36 PM ----- ----- ----- ----- ----- ----- ----- ----- ----- ----- ----- ----- ----- ----- ----- ----- ----- ---- HPV RESUL TS: HPV mRNA E6/E7 : No HPV mRNA Detec charles NOTE: This high risk HPV mRNA assay detec ts fourt een high- risk HPV types (16, 18, 31, 33, 35, 39, 45, 51, 52, 56, 58, 59, 66, 68) witho ut diffe renti ation . CHART ABLE COMME NT: Note: This speci men was revie wed by a Cytot echno logis t and/o r Patho logis t (as indic ated in this repor t) after evalu ation using the Thinp rep Imagi ng Syste m. CLINI KELLIE INFOR MATIO N: Menst rual Statu s: LMP (if appli cable ): Clini kellie Histo ry/Pr eviou s Pap: Type of Neopl sigrid (if appli cable ): Other Histo ry: Hormo holli (if appli cable ): PAP EDUCA RUSH L NOTE: The Pap Test is a scree nevin test with an inher ent false negat nir rate. Liqui d-bas e sampl ing may decre ase, but will not elimi nayely, false negat nir resul ts. A negat nir resul t does not precl ude the prese nce and/o r devel opmen t of disea se, since the prese nce of abnor mal cells in the sampl e depen ds on the locat ion of the lesio n and sampl ing techn ique. Ace nued regul ar scree nevin is the best metho d of cance r preve ntion . If repor charles cytol ogic findi ng do not corre late with physi kellie and/o r histo rical findi ngs, furth er inves tigat ion is recom leda d, as clini donnie warra nted. Not Available [facility] (Lab) [address], [place], [address], 10/30/2020 20:40:09 Result Notes None recorded. 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 17:20:48 Screenin g for malignan t neoplasm of rectum Completed 201710/29/2020 Encounte r for screenin g for malignan t neoplasm of rectum;P ractice ID: 0001 Cyndie Lozano MD [address], [place], [address], [facility] 17:20:43 Reduced libido 2525710 Completed 201910/29/2020 Decrease d libido;P ractice ID: 0001 Cyndie Lozano MD [address], [place], [address], [facility] 17:20:39 Cervical , vaginal and vulval inflamma tory diseases 117197502 Completed 201310/29/2020 Unspecif ied inflamma tory disease of cervix, vagina, and vulva;Pr actice ID: 0001 Cyndie Lozano MD [address], [place], [address], [facility] 17:20:24 Contact dermatit is [id number] Completed 201310/29/2020 Contact dermatit is and other eczema, unspecif ied cause;Pr actice ID: [address], [place], [address], [facility] 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 17:20:50 Screenin g for malignan t neoplasm of cervix Completed 201310/29/2020 Pap Smear;Pr actice ID: [address], [place], [address], [facility] 17:20:41 Carbuncl e of skin and/or subcutan eous tissue 41186775 Completed 201310/29/2020 Carbuncl e and furuncle of unspecif ied site;Pra ctice ID: 0001 Cyndie Lozano MD [address], [place], [address], [facility] 17:20:19 Obesity 582776928 Completed 201410/29/2020 Obesity, unspecif ied;Prac geo ID: 0001 Cyndie Lozano MD [address], [place], [address], [facility] 17:20:36 Adult health examinat ion Completed 201410/29/2020 Routine general medical examinat ion at a health care facility ;Practic e ID: 0001 Cyndie Lozano MD [address], [place], [address], [facility] 17:20:[address] Concept Completed 201510/29/2020 Encntr for general adult medical exam w/o abnormal findings ;Practic e ID: 0001 Cyndie Lozano MD [address], [place], [address], [facility] 17:20:46 Leukocyt osis 683587893 Completed 201210/29/2020 LEUKOCYT OSIS NOS;Prac geo ID: 0001 Cyndie Lozano MD [address], [place], [address], [facility] 17:20:30 Urinary tract infectio us disease 98866018 Completed 201210/29/2020 Urinary tract infectio n, site not specifie d;Practi ce ID: 0001 Cyndie Lozano MD [address], [place], [address], [facility] 17:20:54 Vaginiti s and vulvovag initis Completed 201210/29/2020 Vaginiti s and vulvovag initis, unspecif ied;Prac geo ID: 0001 Cyndie Lozano MD [address], [place], [address], [facility] 17:20:56 Menopaus al symptom 79735360 Completed 201310/29/2020 Menopaus al or female climacte albin states;P ractice ID: 0001 Cyndie Lozano MD [address], [place], [address], [facility] 1 17:20:34 Benign essentia l hyperten lawrence 0240197 Active 2014 Hyperten lawrence, Benign;R ecorded Elsewher e: No Locat ion: [facility] S ource: EHR [employer] Sawyer roger: N [place] ID: 0001 Sammy lable Time: 05:00:00 PM Not Available [facility] 0 14:42:32 Conducti on disorder of the heart 57446420 Active 2013 Bradycar bull;Rajiv rded Elsewher e: No Locat ion: [facility] S ource: EHR [employer] Sawyer roger: N [place] ID: 0001 Sammy lable Time: 12:00:16 PM Not Available [facility] 0 14:42:34 Type 2 diabetes mellitus 28256555 Active 2020 Cyndie Lozano MD [address], [place], [address], [facility] 1 09:15:56 Body mass index 30+ - obesity 645675900 Active 2020 Cyndie Lozano MD [address], [place], [address], [facility] 1 09:17:02 Problem Notes None recorded. Procedures Surgical History Date Name Laterality Status Provider Name and Address Organization Details Recorded Time 1 Date of Last Pap Smear completed [facility] 12/17/2021 09:49:43 4 Date of Last Colonoscopy completed [facility] 12/17/2021 18:10:19 3 colonoscopy completed [facility] 10/27/2020 09:22:34 3 delivery completed [facility] 10/27/2020 09:23:15 3 Tubal Ligation completed [facility] 10/27/2020 09:22:58 9 delivery completed [facility] 10/27/2020 09:23:25 removal of ovarian cyst completed [facility] 10/29/2020 17:13:30 Imaging Results None recorded. Procedure Notes None recorded. Medical Equipment None Reported. Allergies No known drug allergies Medications Name Sig Start Date Stop Date Status Note LastModified by Organization Details LastModified Time hydrocodo ne 5 mg-acetam inophen 500 mg capsule take 1 capsule by oral route every 6 hours as needed 11/01 completed Prescrib ed Elsewher e: Yes Loca tion: [facility] odify By: becca myers DateTime : 10/11/19 14 03:30:00 PM Not Available Not Available Not Available atenolol 25 mg tablet take 1 tablet by oral route every day 12/17 completed Prescrib ed Elsewher e: Yes Loca tion: [facility] odify By: atif bui DateTime : 09/22/19 12 01:00:00 PM Not Available Not Available Not Available clobetaso l 0.05 % topical cream apply by topical route 2 times every day a thin layer to the affected area(s) 11/05 completed Prescrib ed Elsewher e: No Locat ion: [facility] odify By: helder keller DateTime : 10/11/19 14 03:30:00 PM Not Available Not Available Not Available Metrogel Vaginal 0.75 % (37.5 mg/5 gram) insert 1 applicat orful (37.5MG) by vaginal route every day at bedtime 05/23 completed Prescrib ed Elsewher e: No Locat ion: [facility] odify By: daniela samuels DateTime : 10/13/19 13 02:50:48 PM Not Available Not Available Not Available betametha sone valerate 0.1 % topical cream apply by topical route every day a thin layer to the affected area(s) 11/05 completed Prescrib ed Elsewher e: No Locat ion: [facility] odify By: helder Jacobste r DateTime : 08/12/19 14 09:30:00 AM Not Available Not Available Not Available prochlorp erazine 25 mg rectal supposito ry insert 1 supposit ory (25MG) by rectal route 2 times every day 09/21 completed Prescrib ed Elsewher e: No Locat ion: [facility] odify By: diane bui DateTime : 08/24/19 14 03:15:00 PM Not Available Not Available Not Available Cipro 500 mg tablet take 1 tablet by oral route every 12 hours 03/30 completed Prescrib ed Elsewher e: No Locat ion: [facility] odify By: atif bui DateTime : 03/29/20 14 11:00:00 AM Not Available Not Available Not Available hydrochlo rothiazid e 12.5 mg capsule take 2 capsule by oral route every day 12/17 completed Prescrib ed Elsewher e: Yes Loca tion: [facility] odify By: helder Jacobste r DateTime : 11/12/19 17 05:00:00 PM Not Available Not Available Not Available Ambien 5 mg tablet take 2 tablet by oral route every day at bedtime 12/17 completed Prescrib ed Elsewher e: Yes Loca tion: [facility] odify By: daniela samuels DateTime : 05/23/20 13 03:30:00 PM Not Available Not Available Not Available Ativan 2 mg/mL injection solution inject 1 millilit er by intraven ous route 30 minutes before chemothe rapy 12/17 completed Prescrib ed Elsewher e: Yes Loca tion: [facility] odify By: diane bui DateTime : 09/22/19 14 02:15:00 PM Not Available Not Available Not Available Bactrim DS 800 mg-160 mg tablet take 1 tablet by oral route every 12 hours 11/05 completed Prescrib ed Elsewher e: No Locat ion: [facility] odify By: helder Encounte r DateTime : 03/30/20 14 02:32:46 PM Not Available Not Available Not Available Riomet 500 mg/5 mL oral solution take 10 millilit er by oral route 2 times every day with meals 12/17 completed Prescrib ed Elsewher e: Yes Loca tion: [facility] odify By: helder Encounte r DateTime : 11/12/19 17 05:00:00 PM Not Available Not Available Not Available tizanidin e 2 mg capsule take 2 capsule by oral route every 6 hours 12/17 completed Prescrib ed Elsewher e: Yes Loca tion: [facility] odify By: gmedical Encount er DateTime : 03/30/20 14 02:32:46 PM Not Available Not Available Not Available Lyrica 25 mg capsule take 2 capsule by oral route 3 times every day 12/17 completed Prescrib ed Elsewher e: Yes Loca tion: [facility] odify By: helder Encounte r DateTime : 11/12/19 17 05:00:00 PM Not Available Not Available Not Available Seroquel active Not Available Not Avai lable Not Available Hydrocodo ne active Not Available Not Available Not Available Pristiq 100 mg tablet,ex tended release take 1 tablet (100MG) by oral route every day 12/17 completed Prescrib ed Elsewher e: Yes Loca tion: [facility] odify By: tgingric h Encoun ter DateTime : 08/12/19 14 09:30:00 AM Not Available Not Available Not Available Gralise 300 mg tablet,ex tended release 12/17 completed Prescrib ed Elsewher e: Yes Loca tion: [facility] odify By: tgingric h Encoun ter DateTime : 08/12/19 14 09:30:00 AM Not Available Not Available Not Available OxyContin 10 mg tablet,cr ush resistant ,extended release take 1 tablet by oral route every 12 hours 12/17 completed Prescrib ed [facility] e: Yes Loca tion: [facility] M odzhang By: becca myers DateTime : 11/02/19 05:00:00 PM Not Available Not Available Not Available Vitals Date Recorded Body height Body mass index (BMI) Body weight Systolic blood pressure Diastolic blood pressure Systolic blood pressure Diastolic blood pressure Provider Name and Address Organization Details Last Updated DateTime 1 165.1 cm 35.1 kg/m2 18857.9 9 g 155 mm[Hg] 94 mm[Hg] 142 mm[Hg] 90 mm[Hg] [facility] 1 17:11:37 Date Recorded Body height Body mass index (BMI) Body weight Systolic blood pressure Diastolic blood pressure Provider Name and Address Organization Details Last Updated DateTime 12/17/2021 165.1 cm 33.3 kg/m2 56191.47 g 130 mm[Hg] 84 mm[Hg] [facility] 2 18:08:42 Social History Question Answer Notes LastModified by Organizat ion Details LastModified Time Tobacco Smoking Status Never Smoker [facility] 10/29/2020 17:13:09 Do You Use Any Illicit Or Recreational Drugs? No [email or web address] Information not available 10/29/2020 Sex: Unknown Functional Status None recorded. Mental Status None recorded. Family History Nothing Reported Notes:Father: Hyperlipidemia Maternal aunt: Cancer, breast, Diabetes mellitus Maternal grandmother: depression/anxiety, Diabetes mellitus Mother: Diabetes mellitus, depression/anxiety Medical History Condition Response Allergies (Food, seasonal, environmental ) N Other N Breast Cancer N Drug/Latex Allergies/Reactions N Blood Transfusion N Dermatologic Disorders N Lung Disease N Defects or Inherited Disease N Breast Problem N Gestational Diabetes N Hematologic disorders N Anesthesia Complications N History of STI N Deep Vein Thrombosis N Polycystic ovary syndrome N Anxiety Disorder N Autoimmune disease N Arthritis N Infertility N Polyps N Acid Reflux (GERD) N History of abnormal pap N Cancer N Stroke N Varicosities N Neurologic/Epilepsy N Endometriosis N High Cholesterol N Headaches N Fibromyalgia N Kidney Disease N Heart Problems N Kidney or Bladder Problems N Thyroid Problems N GI Problems N Eating Disorder N Anemia N Art (IVF or FET) N Psychiatric Illness N Ovarian Cancer N Diabetes Y Pulmonary (TB, Asthma) N Hepatitis/Liver Disease N No Past Medical History N Eczema N Urinary Tract Infection N Abuse/Domestic Violence N Asthma N Trauma/Violence N Depression/ depression N Heart Disease N Pre-Eclampsia N Hypertension Y Osteoporosis N Thrombophilias N Gynecological History Statement/Question Response Date of Last Pap Smear 10/29/2020 Current Control Method None Date of Last Colonoscopy 06/29/2013 Most Recent Bone Density Obstetrics History GPAL:G 2 P 2 0 0 2 Type Value Full Term 2 Living 2 Total 2 Past Encounters Encounter ID Performer Location Encounter Start Date Encounter Closed Date Diagnosis/Indication Diagnosis SNOMED-CT Code Diagnosis ICD10 Code Diagnosis Note [id number] Cynide Lozano MD [facility] [address] [address] 10/29/2020 17:01:38 10/29/2020 22:22:56 Gynecologic examination 34866100 Z01.419 Z11.51 Body mass index 30+ - obesity 728356388 Z68.35 [id number] Cyndie Lozano MD [facility] [address] [address] 12/17/2021 17:43:35 12/18/2021 15:56:03 Gynecologic examination 61729195 Z01.419 Z11.51 Menopause present 321249 006 N95.1 Health Concerns Section Related Observation LastModified by Organization Detai ls LastModified Time None Recorded Concern Status LastModified by Organization Details LastModified Time None Recorded Advance Directives Directive None Recorded Payers Encounter Date Sequence Insurance Name Policy Number Policy Hernandez Covered Member ID Hernandez Member ID Guarantor Name 10/29/2020 1 [facility] [id number] Edmar Dominguez [id number] Samantha Dominguez 12/17/2021 1 [facility] [id number] Edmar Dominguez [id number] Samantha Dominguez Notes Date Note Type Note Provider Name and Address Organization Details Recorded Time 10/29/2020 text/html Patient is a 60y o who presents for an annual exam. Has been 3 years. NO concerns. last pap-2017 NILM mammo-9 mos colonoscopy-2012, 10 years dexa-5 years, normal menopause-age 52, no bleeding since sexually active-y seatbelts-y exercise-y depression-denies domestic violence-denies tobacco-no concerns-none Cyndie Lozano MD [address], [place], [address], [facility] 10/31/2020 09:17:50 12/17/2021 text/html Patient is a 61y o who presents for an annual exam. No concerns. Scleroderma has been stable. last pap-10/2020 NILM mammo-03/2021 colonoscopy-2012, 10 years dexa-didn't do because of cost- states PCP didn't put a diagnosis on it menopause-age 52, no bleeding sexually active-n seatbelts-y exercise-y depression-denies domestic violence-denies tobacco-n concerns- Cyndie Lozano MD [address], [place], [address], [facility] 12/17/2021 20:24:08 OBGyn Episode Ob Episode Information Episode Created Date Number of Fetuses Patient Bloodtype Patient rh Status Prepregnancy Weight lbs Domestic Partner Domestic Partner Phone Father Name Director Of Collections Status 10/28/19 21 1 CLOSED Fetus Data First Name Last Name Admitted to NICU Weight (g) Sex Living Outcome Pediatric Complications Fetus ID Race Codes Race Delivery Type 3175.14 4 F Full Term [id number] Primary Demario Calculation Initial Demario Date Initial Exam Date Initial Exam Provider Initial Ultrasound Date Last Menstrual Period Date Ultra Sound Weeks Gestation 0 Eighteen To Twenty Week Demario Update Ultra Sound Date Fundal Height At Umbil Quickening Date Ultra Sound Latest Weeks Gestation Final Demario Confirmed By Final Demario Confirmed Date Final Demario Date Ultra Sound Latest Days Gestation 0 0 Menstrual History Last Menstrual Date Menses Monthly On Bcp Conception Prior Menses Frequency Hcg Plus Date Menarche Onset Age Delivery Information Delivery Date Delivery Type Labor Anesthesia Weeks Gestation Incision Type Labor Labor Length Hrs Delivered By Post Complications Tubal Sterilization Discharge Date Comments 3 40 Discharge Information Feeding Method Contraceptive Method Maternal HG B and HCT Levels Ob Episode Information Episode Created Date Number of Fetuses Patient Bloodtype Patient rh Status Prepregnancy Weight lbs Domestic Partner Domestic Partner Phone Father Name Director Of Collections Status 10/28/19 21 1 CLOSED Fetus Data First Name Last Name Admitted to NICU Weight (g) Sex Living Outcome Pediatric Complications Fetus ID Race Codes Race Delivery Type M Full Term [id number] Primary Demario Calculation Initial Demario Date Initial Exam Date Initial Exam Provider Initial Ultrasound Date Last Menstrual Period Date Ultra Sound Weeks Gestation 0 Eighteen To Twenty Week Demario Update Ultra Sound Date Fundal Height At Umbil Quickening Date Ultra Sound Latest Weeks Gestation Final Demario Confirmed By Final Demario Confirmed Date Final Demario Date Ultra Sound Latest Days Gestation 0 0 Menstrual History Last Menstrual Date Menses Monthly On Bcp Conception Prior Menses Frequency Hcg Plus Date Menarche Onset Age Delivery Information Delivery Date Delivery Type Labor Anesthesia Weeks Gestation Incision Type Labor Labor Length Hrs Delivered By Post Complications Tubal Sterilization Discharge Date Comments 198 9 40 placenta previa Discharge Information Feeding Method Contraceptive Method Maternal HG B and HCT Levels
--- OUTSIDE RECORDS SUMMARY | 2024-10-25 11:19 | XMS_ITS | Clinical Summary ---
Author Organization [facility] Address [address] [place] [address] Care Team Providers Care Domestic Violence Advocate Name Role Phone Nadine Sarabia MD Primary Care Provider Source Comments [facility],non-owned Affiliates and Associated Physician Practices is amultiple site organization consisting of ambulatory clinics and hospital sitesin [place], [place], [place] and [place]. This disclosure is being madepursuant to the Care Everywhere program and may not contain all information available regarding this patient. Last updated 18.[facility] Allergies No known active allergies Active Problems Problem Noted Date Diagnosed Date Acute vulvitis 10/20/2013 Lichen sclerosus et atrophicus 10/20/2013 Immunizations Immunization Administration Dates Next Due TDAP (7yrs+) 12/16/2018 Family History Medical History Relation Name Comments Diabetes Child Status: Alive Elevated Lipids Father Heart Disease Father Status: Deceas ed Hypertension Father None Known Maternal Grandfather Status: Depression Maternal Grandmother Diabetes Maternal Grandmother Status: Depression Mother Diabetes Mother Status: Alive Elevated Lipids Mother Hypertension Mother Cancer Paternal Grandfather Heart Disease Paternal Grandfather Status : None Known Paternal Grandmother Status: Relation Name Status Comments Child Father Maternal Grandfather Maternal Grandmother Mother Paternal Grandfather Paternal Grandmother Social History Tobacco Use Types Packs/Day Years Used Date Smoking Tobacco: Never Smokeless Tobacco: Never Alcohol Use Standard Drinks/Week Comments No 0 (1 standard drink = 0.6 oz pur e alcohol) Comments Unknown Sex and Gender Information Value Date Recorded Sex Assigned at Not on file 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 Gender Identity Not on file Sexual Orientation Not on file Last Filed Vital Signs Vital Sign Reading Time Taken Comments Blood Pressure 128/84 10/20/2013 2:04 PM CDT Pulse - - Temperature - - Respiratory Rate - - Oxygen Saturation - - Inhaled Oxygen Concentration - - Weight 91.6 kg (202 lb) 10/20/2013 2:04 PM CDT Height 165.1 cm (5' 5 ) 10/20/2013 2:04 PM CDT Body Mass Index 33.61 10/20/2013 2:04 PM CDT Plan of Treatment Health Maintenance Due Date Last Done Comments COLOGUARD (AGES 45-75) - COL ON CA SCREENING 1961 COLON MONITORING 1961 COLONOSCOPY - COLON CA SCREENING 1961 CT COLONOGRAPHY - COLON CA SCREENING 1961 Colorectal Cancer Screening 1961 FIT - COLON CA SCREENING 1961 FLEX SIG - COLON CA SCREENING 1961 LIPID TESTING 1961 MAMMOGRAM 1961 PAP SMEAR 1961 HIV SCREENING 1976 HEPATITIS C SCREENING 04/20/1979 PNEUMOCOCCAL VACCINE 50+ (1 of 1 - PCV) 2011 ZOSTER VACCINE (1 of 2) 2011 COVID-19 VACCINE ( - 2023-2 5 season) 2024 DEPRESSION SCREENING 06/29/2024 INFLUENZA VACCINE (Season Ended) 2025 DTAP/TDAP/TD VACCINES (2 - T d or Tdap) 12/16/2028 12/16/2018 Respiratory Syncytial Virus (RSV) Vaccine Pt: or over 60 yrs (1 - 1-dose 75+ series) 2036 HEPATITIS B VACCINE Aged Out No longe r eligible based on patient's age to complete this topic HIB VACCINE Aged Out No longer eligi ble based on patient's age to complete this topic HPV VACCINE Aged Out No longer eligi ble based on patient's age to complete this topic MENINGOCOCCAL (Group B) VACC INE SHARED DECISION-MAKING Aged Out No longer eligibl e based on patient's age to complete this topic MENINGOCOCCAL GROUPS A/C/Y/W VACCINE Aged Out No longer eligible b ased on patient's age to complete this [place] [address] [place] [address] * Guarantor: SAMANTHA DOMINGUEZ Account Type Relation to Patient Date of Phone Billing Address [place] [address] [facility] SELF PAY NO INSURANCE Member Subscriber Plan / Payer (Ef fective for All Dates) Name:Samantha Dominguez Member ID:Not on file Relation to Subscriber:Not on file Name:SAMANTHA DOMINGUEZ Subscriber ID:Not on file Address: [place] [address] Payer ID:Not on file Group ID:Not on file Type:Self Pay Address: [place], [place] * Guarantor: SAMANTHA DOMINGUEZ Account Type Relation to Patient Date of Phone Billing Address Personal/[place] [address] [facility] SELF PAY NO INSURANCE Member Subscriber Plan / Payer (Ef fective for All Dates) Name:Samantha Dominguez Member ID:Not on file Relation to Subscriber:Not on file Name:SAMANTHA DOMINGUEZ Subscriber ID:Not on file Address: [place] [address] Payer ID:Not on file Group ID:Not on file Type:Self Pay Address: [place], [place] * Guarantor: SAMANTHA DOMINGUEZ Account Type Relation to Patient Date of Phone Billing Address Personal/[place] [address] [facility] SELF PAY NO INSURANCE Member Subscriber Plan / Payer (Ef fective for All Dates) Name:Samantha Dominguez Member ID:Not on file Relation to Subscriber:Not on file Name:SAMANTHA DOMINGUEZ Subscriber ID:Not on file Address: [place] [address] Payer ID:Not on file Group ID:Not on file Type:Self Pay Address: [place], [place] Care Teams Domestic Violence Advocate Relationship Specialty Start Date End Date Nadine Sarabia MD [address] [place] [address] [address] [place] [id number] PCP - General 10/20/13
--- OUTSIDE RECORDS SUMMARY | 2024-10-25 11:19 | XMS_ITS | Patient Health Record ---
Author Organization [facility] [employer] Address [address] [facility] [address] [place] [address] Care Team Providers Care Blow Pit Operator Name Role Phone Nikolay Sandoval MD Primary Care Provider Unavailab Keila Werner Unavailable [phone] Jackson, Joe Unavailable [phone] Migration, Provider Unavailable Unavailable Allergies No Known Allergies Reason For Referral No Information Medications Medication SIG (Take, Route, Frequency, Duration) Notes Start Date End Date Status Ezetimibe 10 MG TAKE 1 TABLET BY SNEHAL TH DAILY Oral for 90 Days Active Ozempic (2 MG/DOSE) 8 MG/3ML INJECT 2MG UNDER THE SKIN ONCE EVERY WEEK Subcutaneous for 28 Days Active busPIRone HCl 30 MG TAKE 1 TABLET BY SNEHAL TH TWICE DAILY Oral Twice a day for 90 days Active QUEtiapine Fumarate 100 MG TAKE 1 TABLET BY MOUTH EVERY night Oral Once a day for 90 days Active Rosuvastatin Calcium 40 MG TAKE 1 TABLET BY MOUTH DAILY Oral for 30 Days Active traMADol HCl 50 MG TAKE 1 TABLET BY SNEHAL TH THREE TIMES DAILY NEEDED FOR PAIN Oral for 30 Days Active Metoprolol Succinate ER 200 MG TAKE 1 TABLET BY MOUTH DAILY Oral for 90 Days Active amLODIPine Besylate 10 MG TAKE 1 TABLET BY MOUTH DAILY Oral for 90 Days Active Immunizations Vaccine Route Administration Date Status Comme nts Varicella Unknown 04/29/2021 Administered Tdap Unknown 12/16/2018 Administered Pneumococcal polysaccharide PPV23 Unknown 08/17/2019 Ad ministered Pfizer-Biontech Covid-19 Vac cine 1st dose Unknown 01/17/2022 Administered Pfizer Biontech Covid-19 Vac cine 2nd dose Unknown 07/31/2020 Administered Pfizer Biontech Covid-19 Vac cine 2nd dose Unknown 08/21/2020 Administered Pfizer Biontech Covid-19 Vac cine 2nd dose Unknown 06/01/2021 Administered Influenza, seasonal, injecta ble, preservative free, 3 yrs and above Unknown 04/05/2014 Administered Influenza, seasonal, injecta ble, preservative free, 3 yrs and above Unknown 04/13/2015 Administered Influenza, seasonal, injecta ble, preservative free, 3 yrs and above Unknown 02/28/2016 Administered Influenza, injectable, MDCK, preservative free Unknown 03/20/2020 Administered Influenza virus vaccine, quadrivalent (IIV4), split virus, 0.25 mL dosage Unknown 04/29/2017 Administered Influenza virus vaccine, quadrivalent (IIV4), split virus, 0.25 mL dosage Unknown 04/29/2018 Administered Influenza virus vaccine, quadrivalent (IIV4), split virus, 0.25 mL dosage Unknown 03/29/2019 Administered Influenza virus vaccine, quadrivalent (IIV4), split virus, 0.25 mL dosage Unknown 03/28/2020 Administered Influenza virus vaccine, quadrivalent (IIV4), split virus, 0.25 mL dosage Unknown 03/29/2021 Administered Social History Tobacco Use: Social History Observation Description Date Details (start date - stop date) Never Smoker NA - NA Sex Assigned At : Social History Observation Description Sex Assigned At Female Tobacco Control (Standard) Question Answer Notes Tobacco use: Nonsmoker Problems Problem Type SNOMED Code ICD Code Onset Dates Problem Status W/U Status Risk Notes Problem Moderate recurrent major depression (95487332) Major depressive disorder, recurrent, moderate (F33.1) Active confirmed Problem Generalized anxiety disorder (76542540) Generalized anxiety disorder (F41.1) Active confirmed Problem Primary insomnia (2221194) Primary insomnia (F51.01) Active confirmed Problem 37498684 MDD (recurrent major depressive disorder) in remission (F33.40) Active confirmed Problem 29500865 Hypertension, unspecified type (I10) Active confirmed Vital Signs Heart Rate 88 /min 08/18/2024 Blood pressure diastolic 74 mm Hg 08/18/2024 Height-cm 165.10 cm 08/18/2024 Weight-kg 90.54 kg 08/18/2024 Height 65.00 in 08/18/2024 Blood pressure systolic 128 mm Hg 08/18/2024 Weight 199.6 lbs 08/18/2024 BMI 33.21 kg/m2 08/18/2024 Encounters Encounter Location Date Provider Diagnosis [place] [address] [address] 11/03/2023 Thena Jackson Generalized anxiety disorder F41.1 and Major depressive disorder, recurrent, moderate F33.1 [facility] [address] [address] 02/19/2024 Thena Jackson Major depressive disorder, recurrent, moderate F33.1 and Generalized anxiety disorder F41.1 [place] [address] [address] 06/16/2024 Thena Jackson Generalized anxiety disorder F41.1 ; Major depressive disorder, recurrent, moderate F33.1 ; Primary insomnia F51.01 and Hypertension, unspecified type I10 [place] [address] [address] 08/18/2024 Thena Jackson MDD (recurrent major depressive disorder) in remission F33.40 and Generalized anxiety disorder F41.1 [place] [address] [address] 11/14/2023 Provider Migration [place] [address] [address] 11/15/2023 Provider Migration [place] [address] [address] 08/22/2024 Thena Jackson Generalized anxiety disorder F41.1 [place] [address] [address] 09/16/2024 Keila Castrejon Generalized anxiety disorder F41.1 Assessments Encounter Date Diagnosis (ICD Code) Assessment Notes Treatment Notes Treatment Clinical Notes Section Notes 11/03/2023 Major depressive disorder, recurrent, moderate (ICD-10 - F33.1) 11/03/2023 Generalized anxiety disorder (ICD-10 - F41.1) 02/19/2024 Major depressive disorder, recurrent, moderate (ICD-10 - F33.1) 02/19/2024 Generalized anxiety disorder (ICD-10 - F41.1) 06/16/2024 Major depressive disorder, recurrent, moderate (ICD-10 - F33.1) 06/16/2024 Generalized anxiety disorder (ICD-10 - F41.1) 08/18/2024 Generalized anxiety disorder (ICD-10 - F41.1) 08/18/2024 MDD (recurrent major depressive disorder) in remission (ICD-10 - F33.40) 08/22/2024 Generalized anxiety disorder (ICD-10 - F41.1) 09/16/2024 Generalized anxiety disorder (ICD-10 - F41.1) 06/16/2024 Primary insomnia (ICD-10 - F51.01) 06/16/2024 Hypertension, unspecified type (ICD-10 - I10) Plan Of Treatment Next Appt Details Provider Name:Keila Castrejon , 11/10/2024 11:30:00 AM, [address], [place] [address], [place], [address], Provider Name:Keila Castrejon , 11/15/2024 11:15:00 AM, [address], [facility] [address], [place], [address], Insurance Providers Payer Name Payer Address Payer Phone Subscriber Number Group Number Insured Name Patient Relationship to Insured Coverage Start Date Coverage End Date [facility] [address] [place] [address] [id number] TITO RAINEY Self - patient is the insured Medical (General) History Medical History History ICD Code Problems: Generalized anxiety disorder Long-term current use of drug therapy Long-term drug therapy Major depressive disorder Primary insomnia , Surgical History Surgery Date(Month/Year) Removal of gallbladder (52714) 0 Colectomy (74225) 04/21/2004
== END 2024-10-25 10:42 | disposition home or self-care (01) ==
PROVIDERS: Emergency Provider Nurse Practitioner Family
DX: N39.0 Urinary tract infection, site not specified (principal); I10 Essential (primary) hypertension; E11.9 Type 2 diabetes mellitus without complications; Z79.85 Long-term (current) use of injectable non-insulin antidiabetic drugs; E78.5 Hyperlipidemia, unspecified; M19.90 Unspecified osteoarthritis, unspecified site; E66.01 Morbid (severe) obesity due to excess calories; Z68.32 Body mass index [BMI] 32.0-32.9, adult
CPT/HCPCS: 81003; 87086; 99213; G0463

== ENCOUNTER 2024-12-15 08:08 | Emergency (ER) | payer OTHER, SELFPAY ==
--- OUTSIDE RECORDS SUMMARY | 2024-12-15 08:12 | XMS_ITS | Patient Health Record ---
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 Role Phone Nikolay Sandoval MD Primary Care Provider Unavailab Keila Werner Unavailable [phone] Jackson, Thena Unavailable [phone] Allergies No Known Allergies Results Component Value Reference Range Notes UDT Reviewed date:11/15/2024 11:49:00 AM Interpretation: Performing Lab: Notes/Report: THC NEG 0 - 50 ng/ml Cocaine NEG 0 - 300 ng/ml Amphetamine NEG 0 - 1000 ng/ml Buprenorphine (BUP) NEG 0 - 10 ng/ml Secobarbital (Bar) NEG 0 - 300 ng/ml Oxazepam (BZO) NEG 0 - 300 ng/ml 9-gkrgvisnsn-6,9-zgsztiir-5,3-diphenylpyrrolidine (MARIYA P) NEG 0 - 300 ng/ml Methamphetamine (MET) NEG 0 - 1000 ng/ml Methylenedioxymethamphetamine (MDMA) NEG 0 - 500 ng/ml Morphine (MOP 300/[id number]) NEG 0 - 300 ng/ml Methadone (MTD) NEG 0 - 300 ng/ml Phencyclidine (PCP) NEG 0 - 25 ng/ml Nortriptyline (TCA) NEG 0 - 1000 ng/ml Oxycodone NEG 0 - 300 ng/ml x NEG 0 - 300 ng/ml Reason For Referral No Information Medications Medication SIG (Take, Route, Frequency, Duration) Notes Start Date End Date Status traMADol HCl 50 MG TAKE 1 TABLET BY THREE TIMES DAILY NEEDED FOR PAIN Oral for 30 Days Active Ozempic (2 MG/DOSE) 8 MG/3ML INJECT 2MG UNDER THE SKIN ONCE EVERY WEEK Subcutaneous for 28 Days Active busPIRone HCl 30 MG TAKE 1 TABLET BY SNEHAL TH TWICE DAILY Oral Twice a day for 90 days Active Ezetimibe 10 MG TAKE 1 TABLET BY SNEHAL TH DAILY Oral for 90 Days Active Metoprolol Succinate ER 200 MG TAKE 1 TABLET BY MOUTH DAILY Oral for 90 Days Active amLODIPine Besylate 10 MG TAKE 1 TABLET BY MOUTH DAILY Oral for 90 Days Active Rosuvastatin Calcium 40 MG TAKE 1 TABLET BY MOUTH DAILY Oral for 30 Days Active QUEtiapine Fumarate 100 MG TAKE 1 TABLET BY MOUTH EVERY night Oral Once a day for 90 days Active Immunizations Vaccine Route Administration Date Status Comme nts Influenza virus vaccine, quadrivalent (IIV4), split virus, [...] virus, 0.25 mL dosage Unknown 03/29/2021 Administered Influenza, injectable, MDCK, preservative free Unknown 03/20/2020 Administered Influenza, seasonal, injecta ble, preservative free, 3 yrs and above Unknown 04/05/2014 Administered Influenza, seasonal, injecta ble, preservative free, 3 yrs and above Unknown 04/13/2015 Administered Influenza, seasonal, injecta ble, preservative free, 3 yrs and above Unknown 02/28/2016 Administered Pfizer Bion[employer] Covid-19 Vac cine 2nd dose Unknown 07/31/2020 Administered Pfizer [employer] Covid-19 Vac cine 2nd dose Unknown 08/21/2020 Administered Pfizer [employer] Covid-19 Vac cine 2nd dose Unknown 06/01/2021 Administered Pfizer-Biontech Covid-19 Vac cine 1st dose Unknown 01/17/2022 Administered Pneumococcal polysaccharide PPV23 Unknown 08/17/2019 Ad ministered Tdap Unknown 12/16/2018 Administered Varicella Unknown 04/29/2021 Administered Social History Tobacco Use: Social History Observation Description Date Details (start date - stop date) Never Smoker NA - NA Sex Assigned At : Social History Observation Description Sex Assigned At Female Tobacco Control (Standard) Question Answer Notes Tobacco use: Nonsmoker Problems Problem Type SNOMED Code ICD Code Onset Dates Problem Status W/U Status Risk Notes Problem Mild recurrent major depression (60239649) Major depressive disorder, recurrent, mild (F33.0) 01/16/20 23 Active confirmed Problem Moderate recurrent major depression (72662037) Major depressive disorder, recurrent, moderate (F33.1) Active confirmed Problem Generalized anxiety disorder (F41.1) 11/03/19 24 Active confirmed Problem Primary insomnia (1552853) Primary insomnia (F51.01) 01/16/20 23 Active confirmed Problem Screening for cardiovascular system disease (481145721) Encounter for screening for cardiovascular disorders (Z13.6) Active confirmed Problem 24697917 MDD (recurrent major depressive disorder) in remission (F33.40) Active confirmed Problem 98113146 Hypertension, unspecified type (I10) Active confirmed Problem [id number] Negative depression screening (Z13.31) Active confirmed Vital Signs Heart Rate 80 /min 11/15/2024 Respiratory Rate 16 /min 11/15/2024 Height-cm 165.10 cm 11/15/2024 Blood pressure diastolic 82 mm Hg 11/15/2024 Weight-kg 90.72 kg 11/15/2024 Height 65.00 in 11/15/2024 Blood pressure systolic 127 mm Hg 11/15/2024 Weight 200.0 lbs 11/15/2024 BMI 33.28 kg/m2 11/15/2024 Encounters Encounter Location Date Provider Diagnosis [facility] [address] [place] [address] 02/19/2024 Thena Jackson Major depressive disorder, recurrent, moderate F33.1 and Generalized anxiety disorder F41.1 [facility] [address] [place] [address] 06/16/2024 Thena Jackson Generalized anxiety disorder F41.1 ; Major depressive disorder, recurrent, moderate F33.1 ; Primary insomnia F51.01 and Hypertension, unspecified type I10 [facility] [address] [place] [address] 08/18/2024 Thena Jackson MDD (recurrent major depressive disorder) in remission F33.40 and Generalized anxiety disorder F41.1 [facility] [address] [place] [address] 11/15/2024 Keila Catsrejon Negative depression screening Z13.31 ; Major depressive disorder, recurrent, mild F33.0 ; Encounter for screening for cardiovascular disorders Z13.6 ; Generalized anxiety disorder F41.1 and Primary insomnia F51.01 [facility] [address] [place] [address] 08/22/2024 Joe Paz Generalized anxiety disorder F41.1 [facility] [address] [place] [address] 09/16/2024 Keila Castrejon Generalized anxiety disorder F41.1 Assessments Encounter Date Diagnosis (ICD Code) Assessment Notes Treatment Notes Treatment Clinical Notes Section Notes 02/19/2024 Major depressive disorder, recurrent, moderate (ICD-10 [...] 09/16/2024 Generalized anxiety disorder (ICD-10 - F41.1) 11/15/2024 Major depressive disorder, recurrent, mild (ICD-10 - F33.0) 1. Depression Seroquel 100 mg at bedtime 2. Anxiety Buspar 30 mg twice a day 3. Insomnia stable educated on all medications, benefits, side effects and risk, and educated on depression, anxiety, and ADHD, mood d/o and educated on compliance of medications, metabolic and movement d/o education appointment is, continue therapy discussion with patient about course of treatment and patient instructions. education on serotonin syndrome SSRI/SNRI side effects discussed including but not limited to, gastric upset, nausea, vomiting, diarrhea and/or constipation, weight changes, sexual side effects including loss of libido, increased suicidal thoughts/behaviors in children and young adults, and serotonin syndrome. Second generation antipsychotics (SGAs) have metabolic syndrome issues with weight gain, increase in prolactin, increased waist circumference, increased lipids, and increased glucose. Thus routine monitoring of weight, metabolic labs, etc. is indicated. A general rank ordering of antipsychotics that have the greatest to the least risk of metabolic effects is olanzapine, quetiapine, risperidone, ziprasidone, and aripiprazole. However, weight gain can occur with all of these drugs and considerable variability exists among patients receiving the same drug regarding the risk of metabolic effects. Anti-psychotic agents not only increase the risk of metabolic disorder, they also increase the risk of CVA, akathisia, and movement disorders including EPS or tardive dyskinesia (more common with first generation antipsychotics) and more. Elderly- discussed risks, cognition, sedation, falls, metabolic, movement and atypical antipsychotics carry a black-box warning for increased risk of and cerebrovascular events in dementia. Medication Management and Follow-Up - Plan: - Schedule follow-up appointments every 1-3 months to monitor the patient's response to the medication regimen. - Reinforce the importance of avoiding recreational drug use due to potential neurotoxicity and interactions with prescribed medications. 11/15/2024 Negative depression screening (ICD-10 - Z13.31) 1. Depression Seroquel 100 mg at bedtime 2. Anxiety Buspar 30 mg twice a day 3. Insomnia stable educated on all medications, benefits, side effects and risk, and educated on depression, anxiety, and ADHD, mood d/o and educated on compliance of medications, metabolic and movement d/o education appointment is, continue therapy discussion with patient about course of treatment and patient instructions. education on serotonin syndrome SSRI/SNRI side effects discussed including but not limited to, gastric upset, nausea, vomiting, diarrhea and/or constipation, weight changes, sexual side effects including loss of libido, increased suicidal thoughts/behaviors in children and young adults, and serotonin syndrome. Second generation antipsychotics (SGAs) have metabolic syndrome issues with weight gain, increase in prolactin, increased waist circumference, increased lipids, and increased glucose. Thus routine monitoring of weight, metabolic labs, etc. is indicated. A general rank ordering of antipsychotics that have the greatest to the least risk of metabolic effects is olanzapine, quetiapine, risperidone, ziprasidone, and aripiprazole. However, weight gain can occur with all of these drugs and considerable variability exists among patients receiving the same drug regarding the risk of metabolic effects. Anti-psychotic agents not only increase the risk of metabolic disorder, they also increase the risk of CVA, akathisia, and movement disorders including EPS or tardive dyskinesia (more common with first generation antipsychotics) and more. Elderly- discussed risks, cognition, sedation, falls, metabolic, movement and atypical antipsychotics carry a black-box warning for increased risk of and cerebrovascular events in dementia. Medication Management and Follow-Up - Plan: - Schedule follow-up appointments every 1-3 months to monitor the patient's response to the medication regimen. - Reinforce the importance of avoiding recreational drug use due to potential neurotoxicity and interactions with prescribed medications. 11/15/2024 Encounter for screening for cardiovascular disorders (ICD-10 - Z13.6) 1. Depression Seroquel 100 mg at bedtime 2. Anxiety Buspar 30 mg twice a day 3. Insomnia stable educated on all medications, benefits, side effects and risk, and educated on depression, anxiety, and ADHD, mood d/o and educated on compliance of medications, metabolic and movement d/o education appointment is, continue therapy discussion with patient about course of treatment and patient instructions. education on serotonin syndrome SSRI/SNRI side effects discussed including but not limited to, gastric upset, nausea, vomiting, diarrhea and/or constipation, weight changes, sexual side effects including loss of libido, increased suicidal thoughts/behaviors in children and young adults, and serotonin syndrome. Second generation antipsychotics (SGAs) have metabolic syndrome issues with weight gain, increase in prolactin, increased waist circumference, increased lipids, and increased glucose. Thus routine monitoring of weight, metabolic labs, etc. is indicated. A general rank ordering of antipsychotics that have the greatest to the least risk of metabolic effects is olanzapine, quetiapine, risperidone, ziprasidone, and aripiprazole. However, weight gain can occur with all of these drugs and considerable variability exists among patients receiving the same drug regarding the risk of metabolic effects. Anti-psychotic agents not only increase the risk of metabolic disorder, they also increase the risk of CVA, akathisia, and movement disorders including EPS or tardive dyskinesia (more common with first generation antipsychotics) and more. Elderly- discussed risks, cognition, sedation, falls, metabolic, movement and atypical antipsychotics carry a black-box warning for increased risk of and cerebrovascular events in dementia. Medication Management and Follow-Up - Plan: - Schedule follow-up appointments every 1-3 months to monitor the patient's response to the medication regimen. - Reinforce the importance of avoiding recreational drug use due to potential neurotoxicity and interactions with prescribed medications. 06/16/2024 Primary insomnia (ICD-10 - F51.01) 06/16/2024 Hypertension, unspecified type (ICD-10 - I10) 11/15/2024 Generalized anxiety disorder (ICD-10 - F41.1) 1. Depression Seroquel 100 mg at bedtime 2. Anxiety Buspar 30 mg twice a day 3. Insomnia stable educated on all medications, benefits, side effects and risk, and educated on depression, anxiety, and ADHD, mood d/o and educated on compliance of medications, metabolic and movement d/o education appointment is, continue therapy discussion with patient about course of treatment and patient instructions. education on serotonin syndrome SSRI/SNRI side effects discussed including but not limited to, gastric upset, nausea, vomiting, diarrhea and/or constipation, weight changes, sexual side effects including loss of libido, increased suicidal thoughts/behaviors in children and young adults, and serotonin syndrome. Second generation antipsychotics (SGAs) have metabolic syndrome issues with weight gain, increase in prolactin, increased waist circumference, increased lipids, and increased glucose. Thus routine monitoring of weight, metabolic labs, etc. is indicated. A general rank ordering of antipsychotics that have the greatest to the least risk of metabolic effects is olanzapine, quetiapine, risperidone, ziprasidone, and aripiprazole. However, weight gain can occur with all of these drugs and considerable variability exists among patients receiving the same drug regarding the risk of metabolic effects. Anti-psychotic agents not only increase the risk of metabolic disorder, they also increase the risk of CVA, akathisia, and movement disorders including EPS or tardive dyskinesia (more common with first generation antipsychotics) and more. Elderly- discussed risks, cognition, sedation, falls, metabolic, movement and atypical antipsychotics carry a black-box warning for increased risk of and cerebrovascular events in dementia. Medication Management and Follow-Up - Plan: - Schedule follow-up appointments every 1-3 months to monitor the patient's response to the medication regimen. - Reinforce the importance of avoiding recreational drug use due to potential neurotoxicity and interactions with prescribed medications. 11/15/2024 Primary insomnia (ICD-10 - F51.01) 1. Depression Seroquel 100 mg at bedtime 2. Anxiety Buspar 30 mg twice a day 3. Insomnia stable educated on all medications, benefits, side effects and risk, and educated on depression, anxiety, and ADHD, mood d/o and educated on compliance of medications, metabolic and movement d/o education appointment is, continue therapy discussion with patient about course of treatment and patient instructions. education on serotonin syndrome SSRI/SNRI side effects discussed including but not limited to, gastric upset, nausea, vomiting, diarrhea and/or constipation, weight changes, sexual side effects including loss of libido, increased suicidal thoughts/behaviors in children and young adults, and serotonin syndrome. Second generation antipsychotics (SGAs) have metabolic syndrome issues with weight gain, increase in prolactin, increased waist circumference, increased lipids, and increased glucose. Thus routine monitoring of weight, metabolic labs, etc. is indicated. A general rank ordering of antipsychotics that have the greatest to the least risk of metabolic effects is olanzapine, quetiapine, risperidone, ziprasidone, and aripiprazole. However, weight gain can occur with all of these drugs and considerable variability exists among patients receiving the same drug regarding the risk of metabolic effects. Anti-psychotic agents not only increase the risk of metabolic disorder, they also increase the risk of CVA, akathisia, and movement disorders including EPS or tardive dyskinesia (more common with first generation antipsychotics) and more. Elderly- discussed risks, cognition, sedation, falls, metabolic, movement and atypical antipsychotics carry a black-box warning for increased risk of and cerebrovascular events in dementia. Medication Management and Follow-Up - Plan: - Schedule follow-up appointments every 1-3 months to monitor the patient's response to the medication regimen. - Reinforce the importance of avoiding recreational drug use due to potential neurotoxicity and interactions with prescribed medications. Plan Of Treatment No Information Insurance Providers Payer Name Payer Address Payer Phone Subscriber Number Group Number Insured Name Patient Relationship to Insured Coverage Start Date Coverage End Date [facility] [id number] [place] [address] [id number] TIOT RAINEY Self - patient is the insured Medical (General) History Medical History History ICD Code Problems: Generalized anxiety disorder Long-term current use of drug therapy Long-term drug therapy Major depressive disorder Primary insomnia , Surgical History Surgery Date(Month/Year) Removal of gallbladder (77437) 0 Colectomy (32334) 04/21/2004
--- OUTSIDE RECORDS SUMMARY | 2024-12-15 08:12 | XMS_ITS | Clinical Summary ---
Author Organization [facility] Address [address] 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 This disclosure is being madepursuant to the Care Everywhere program and may not contain all information available regarding this patient. 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 Gender Identity Not on file Sexual Orientation Not on file Last Filed Vital Signs Vital Sign Reading Time Taken Comments Blood Pressure 128/84 10/20/2013 2:04 PM CDT Pulse - - Temperature - - Respiratory Rate - - Oxygen Saturation - - Inhaled Oxygen Concentration - - Weight 91.6 kg (202 lb) 10/20/2013 2:04 PM CDT Height 165.1 cm (5' 5) 10/20/2013 2:04 PM CDT Body Mass Index [...] SCREENING 1961 LIPID TESTING 1961 MAMMOGRAM 1961 HIV SCREENING 1976 HEPATITIS C SCREENING 04/20/1979 PAP SMEAR 1982 PNEUMOCOCCAL VACCINE 50+ (1 of 1 - [...] to complete [place] [address] [employer] * Guarantor: SAMANTHA DOMINGUEZ Account Type Relation to Patient Date of Phone Billing Address [place] [address] [facility] SELF PAY NO INSURANCE Member Subscriber Plan / Payer (Ef fective for All Dates) Name:Samantha Dominguez Member ID:Not on file Relation to Subscriber:Not on file Name:SAMANTHA DOMINGUEZ Subscriber ID:Not on file Address: [place] [address] Payer ID:Not on file Group ID:Not on file Type:Self Pay Address: [place], [place] * Guarantor: SAMANTHA DOMINGUEZ Account Type Relation to Patient Date of Phone Billing Address [place] [address] [facility] SELF PAY NO INSURANCE Member Subscriber Plan / Payer (Ef fective for All Dates) Name:Samantha Dominguez Member ID:Not on file Relation to Subscriber:Not on file Name:SAMANTHA DOMINGUEZ Subscriber ID:Not on file Address: [place] [address] Payer ID:Not on file Group ID:Not on file Type:Self Pay Address: [place], [place] * Guarantor: SAMANTHA DOMINGUEZ Account Type Relation to Patient Date of Phone Billing Address [place] [address] [facility] SELF PAY NO INSURANCE Member Subscriber Plan / Payer (Ef fective for All Dates) Name:Samantha Dominguez Member ID:Not on file Relation to Subscriber:Not on file Name:SAMANTHA DOMINGUEZ Subscriber ID:Not on file Address: [place] [address] Payer ID:Not on file Group ID:Not on file Type:Self Pay Address: [place], [place] Care Teams Reducing Salon Attendant Relationship Specialty Start Date End Date Nadine Sarabia MD [address] [place] [address] [address] [place] [id number] PCP - General 10/20/13
--- OUTSIDE RECORDS SUMMARY | 2024-12-15 08:13 | XMS_ITS | Data Portability ---
Author Organization [facility] [place] Address [address] [place] [address] Assessment Encounter Date Assessment Date Assessment LastModified by Organization Details LastModified Time 10/29/2020 10/29/2020 healthy female exam/menopaus e patient declines std testing pap done, discussed guidelines mammogram due in 3 mos colonoscopy due 2022 dexa ordered and encouraged Encouraged weight bearing exercise and 1500mg daily of Calcium with Vitamin D encouraged exercise, healthy diet, weightloss FU 1 year or prn [id number] Not available 10/31/2020 09:17:24 12/17/2021 12/17/2021 healthy female exam/menopaus e patient declines std testing pap due 2023 mammogram ordered for colonoscopy due next year dexa ordered and encouraged Encouraged weight bearing exercise and 1500mg daily of Calcium with Vitamin D FU 1 year or prn [email or web address] Not available 12/17/2021 20:23:41 Plan of Treatment [...] Gynec ologi kellie Repor t Case: [id number] Autho funmi lee Provi gabby: Cyndie William MD Colle cted: 10/29 1708 Order ing Locat ion: [place] [facility] logkelly Recei eulalia: 10/30 0943 First Scree n: Demetra Jean Speci men: Scree nevin Pap - Image d, Cervi x STATE MENT OF ADEQU ACY: Satis facto ry for evalu ation Trans forma tion zone compo nent absen t FINAL DIAGN OSIS: Negat nir for Intra epith elial Lesio n or [...] as clini donnie warra nted. Not Available [facility] (Lab) [address], [place], [address], 10/30/2020 20:40:09 Result Notes None recorded. 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 17:20:48 Screenin g for malignan t neoplasm of rectum Completed 201710/29/2020 Encounte r for screenin g for malignan t neoplasm of rectum;P ractice ID: 0001 Cyndie Lozano MD [address], [place], [address], [facility] 17:20:43 Reduced libido 7145733 Completed 201910/29/2020 Decrease d libido;P ractice ID: 0001 Cyndie Lozano MD [address], [place], [address], [facility] 17:20:39 Cervical , vaginal and vulval inflamma tory diseases 899280786 Completed 201310/29/2020 Unspecif ied inflamma tory disease of cervix, vagina, and vulva;Pr actice ID: 0001 Cyndie Lozano MD [address], [place], [address], [facility] 17:20:24 Contact dermatit is [id number] Completed 201310/29/2020 Contact dermatit is and other eczema, unspecif ied cause;Pr actice ID: [address], [place], [address], [facility] 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 17:20:50 Screenin g for malignan t neoplasm of cervix Completed 201310/29/2020 Pap Smear;Pr actice ID: [address], [place], [address], [facility] 17:20:41 Carbuncl e of skin and/or subcutan eous tissue 91900285 Completed 201310/29/2020 Carbuncl e and furuncle of unspecif ied site;Pra ctice ID: 0001 Cyndie Lozano MD [address], [place], [address], [facility] 17:20:19 Obesity 047894836 Completed 201410/29/2020 Obesity, unspecif ied;Prac geo ID: 0001 Cyndie Lozano MD [address], [place], [address], [facility] 17:20:36 Adult health examinat ion Completed 201410/29/2020 Routine general medical examinat ion at a health care facility ;Practic e ID: 0001 Cyndie Lozano MD [address], [place], [address], [facility] 17:20:[address] Concept Completed 201510/29/2020 Encntr for general adult medical exam w/o abnormal findings ;Practic e ID: 0001 Cyndie Lozano MD [address], [place], [address], [facility] 17:20:46 Leukocyt osis 086068163 Completed 201210/29/2020 LEUKOCYT OSIS NOS;Prac geo ID: 0001 Cyndie Lozano MD [address], [place], [address], [facility] 17:20:30 Urinary tract infectio us disease 36381884 Completed 201210/29/2020 Urinary tract infectio n, site not specifie d;Practi ce ID: 0001 Cyndie Lozano MD [address], [place], [address], [facility] 17:20:54 Vaginiti s and vulvovag initis Completed 201210/29/2020 Vaginiti s and vulvovag initis, unspecif ied;Prac geo ID: 0001 Cyndie Lozano MD [address], [place], [address], [facility] 17:20:56 Menopaus al symptom 94844769 Completed 201310/29/2020 Menopaus al or female climacte albin states;P ractice ID: 0001 Cyndie Lozano MD [address], [place], [address], [facility] 1 17:20:34 Benign essentia l hyperten lawrence 9125028 Active 2014 Hyperten lawrence, Benign;R ecorded Elsewher e: No Locat ion: [facility] S ource: EHR Stiff Neck Loader roger: N [place] ID: 0001 Sammy lable Time: 05:00:00 PM Not Available [facility] 0 14:42:32 Conducti on disorder of the heart 99304427 Active 2013 Bradycar bull;Rajiv rded Elsewher e: No Locat ion: [facility] S ource: EHR Stiff Neck Loader roger: [place] ID: 0001 Sammy lable Time: 12:00:16 PM Not Available [facility] 0 14:42:34 Type 2 diabetes mellitus 94930554 Active 2020 Cyndie Lozano MD [address], [place], [address], [facility] 1 09:15:56 Body mass index 30+ - obesity 264474450 Active 2020 Cyndie Lozano MD [address], [place], [address], [facility] 1 09:17:02 Problem Notes None recorded. Procedures Surgical History Date Name Laterality Status Provider Name and Address Organization Details Recorded Time 1 Date of Last Pap Smear completed [facility] 12/17/2021 09:49:43 4 Date of Last Colonoscopy completed [facility] 12/17/2021 18:10:19 3 colonoscopy completed [facility] 10/27/2020 09:22:34 3 delivery completed [facility] 10/27/2020 09:23:15 3 Tubal Ligation completed [facility] 10/27/2020 09:22:58 9 delivery completed [facility] 10/27/2020 09:23:25 removal of ovarian cyst completed [facility] 10/29/2020 17:13:30 Imaging Results [...] Prescrib ed Elsewher e: Yes Loca tion: [facility] odify By: becca myers DateTime : 10/11/19 14 03:30:00 PM Not Available Not Available Not Available atenolol 25 mg tablet take 1 tablet by oral route every day 12/17 completed Prescrib ed Elsewher e: Yes Loca tion: [facility] odify By: atif bui DateTime : 09/22/19 12 01:00:00 PM Not Available Not Available Not Available clobetaso l 0.05 % topical cream apply by topical route 2 times every day a thin layer to the affected area(s) 11/05 completed Prescrib ed Elsewher e: No Locat ion: [facility] odify By: helder keller DateTime : 10/11/19 14 03:30:00 PM Not Available Not Available Not Available Metrogel Vaginal 0.75 % (37.5 mg/5 gram) insert 1 applicat orful (37.5MG) by vaginal route every day at bedtime 05/23 completed Prescrib ed Elsewher e: No Locat ion: [facility] odify By: daniela samuels DateTime : 10/13/19 13 02:50:48 PM Not Available Not Available Not Available betametha sone valerate 0.1 % topical cream apply by topical route every day a thin layer to the affected area(s) 11/05 completed Prescrib ed Elsewher e: No Locat ion: [facility] odify By: helder Jacobste r DateTime : 08/12/19 14 09:30:00 AM Not Available Not Available Not Available prochlorp erazine 25 mg rectal supposito ry insert 1 supposit ory (25MG) by rectal route 2 times every day 09/21 completed Prescrib ed Elsewher e: No Locat ion: [facility] odify By: diane bui DateTime : 08/24/19 14 03:15:00 PM Not Available Not Available Not Available Cipro 500 mg tablet take 1 tablet by oral route every 12 hours 03/30 completed Prescrib ed Elsewher e: No Locat ion: [facility] odify By: atif bui DateTime : 03/29/20 14 11:00:00 AM Not Available Not Available Not Available hydrochlo rothiazid e 12.5 mg capsule take 2 capsule by oral route every day 12/17 completed Prescrib ed Elsewher e: Yes Loca tion: [facility] odify By: helder Jacobste r DateTime : 11/12/19 17 05:00:00 PM Not Available Not Available Not Available Ambien 5 mg tablet take 2 tablet by oral route every day at bedtime 12/17 completed Prescrib ed Elsewher e: Yes Loca tion: [facility] odify By: daniela samuels DateTime : 05/23/20 13 03:30:00 PM Not Available Not Available Not Available Ativan 2 mg/mL injection solution inject 1 millilit er by intraven ous route 30 minutes before chemothe rapy 12/17 completed Prescrib ed Elsewher e: Yes Loca tion: [facility] odify By: diane bui DateTime : 09/22/19 14 02:15:00 PM Not Available Not Available Not Available Bactrim DS 800 mg-160 mg tablet take 1 tablet by oral route every 12 hours 11/05 completed Prescrib ed Elsewher e: No Locat ion: [facility] odify By: helder Encounte r DateTime : 03/30/20 14 02:32:46 PM Not Available Not Available Not Available Riomet 500 mg/5 mL oral solution take 10 millilit er by oral route 2 times every day with meals 12/17 completed Prescrib ed Elsewher e: Yes Loca tion: [facility] odify By: helder Encounte r DateTime : 11/12/19 17 05:00:00 PM Not Available Not Available Not Available tizanidin e 2 mg capsule take 2 capsule by oral route every 6 hours 12/17 completed Prescrib ed Elsewher e: Yes Loca tion: [facility] odify By: gmedical Encount er DateTime : 03/30/20 14 02:32:46 PM Not Available Not Available Not Available Lyrica 25 mg capsule take 2 capsule by oral route 3 times every day 12/17 completed Prescrib ed Elsewher e: Yes Loca tion: [facility] odify By: helder Encounte r DateTime : 11/12/19 17 05:00:00 PM Not Available Not Available Not Available Seroquel active Not Available Not Avai lable Not Available Hydrocodo ne active Not Available Not Available Not Available Pristiq 100 mg tablet,ex tended release take 1 tablet (100MG) by oral route every day 12/17 completed Prescrib ed Elsewher e: Yes Loca tion: [facility] odify By: tgingric h Encoun ter DateTime : 08/12/19 14 09:30:00 AM Not Available Not Available Not Available Gralise 300 mg tablet,ex tended release 12/17 completed Prescrib ed Elsewher e: Yes Loca tion: [facility] odify By: tgingric h Encoun ter DateTime : 08/12/19 14 09:30:00 AM Not Available Not Available Not Available OxyContin 10 mg tablet,cr ush resistant ,extended release take 1 tablet by oral route every 12 hours 12/17 completed Prescrib ed [facility] e: Yes Loca tion: [facility] M faizazhang By: becca myers DateTime : 11/02/19 05:00:00 PM Not Available Not Available Not Available Vitals Date Recorded Body height Body mass index (BMI) Body weight Systolic blood pressure Diastolic blood pressure Systolic blood pressure Diastolic blood pressure Provider Name and Address Organization Details Last Updated DateTime 1 165.1 cm 35.1 kg/m2 87670.9 9 g 155 mm[Hg] 94 mm[Hg] 142 mm[Hg] 90 mm[Hg] [facility] 1 17:11:37 Date Recorded Body height Body mass index (BMI) Body weight Systolic blood pressure Diastolic blood pressure Provider Name and Address Organization Details Last Updated DateTime 12/17/2021 165.1 cm 33.3 kg/m2 20372.47 g 130 mm[Hg] 84 mm[Hg] [facility] 2 18:08:42 Social History None recorded. Functional Status Question Answer Note LastModified by Organizat ion Details LastModified Time Do you use any illicit or recreational drugs? No smcaley Information not available 10/29/2020 Mental Status None recorded. Family History Nothing [...] SNOMED-CT Code Diagnosis ICD10 Code Diagnosis Note [id number] Cyndie Lozano MD [place] [address] [address] 10/29/2020 17:01:38 10/29/2020 22:22:56 Gynecologic examination 93942079 Z01.419 Z11.51 Body mass index 30+ - obesity 783611950 Z68.35 [id number] Cyndie Lozano MD [place] [address] [address] 12/17/2021 17:43:35 12/18/2021 15:56:03 Gynecologic examination 45699393 Z01.419 Z11.51 Menopause present 840058 006 N95.1 Health Concerns Section Related Observation LastModified by Organization Detai ls LastModified Time None Recorded Concern Status LastModified by Organization Details LastModified Time None Recorded Advance Directives Directive None Recorded Payers Insurance Date Sequence Insurance Name Policy Number Policy Hernandez Covered Member ID Hernandez Member ID Guarantor Name 12/14/2021 1 [facility] [id number] Edmar Dominguez [id number] Samantha Dominguez Notes Date Note Type Note Provider Name and Address Organization Details Recorded Time 10/29/2020 text/html Patient is a 60y o who presents for an annual exam. Has been 3 years. NO concerns. last pap-2017 NILM mammo-9 mos colonoscopy-2012, 10 years dexa-5 years, normal menopause-age 52, no bleeding since sexually active-y seatbelts-y exercise-y depression-denies domestic violence-denies tobacco-no concerns-none Cyndie Lozano MD [address], [place], [address], [facility] 10/31/2020 09:17:50 12/17/2021 text/html Patient is a 61y o who presents for an annual exam. No concerns. Scleroderma has been stable. last pap-10/2020 NILM mammo-03/2021 colonoscopy-2012, 10 years dexa-didn't do because of cost- states PCP didn't put a diagnosis on it menopause-age 52, no bleeding sexually active-n seatbelts-y exercise-y depression-denies domestic violence-denies tobacco-n concerns- Cyndie Lozano MD [address], [place], [address], [facility] 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
--- OUTSIDE RECORDS SUMMARY | 2024-12-15 08:17 | XMS_ITS | Clinical Summary ---
Author Organization [facility] Address [facility] [place] [address] Care Team Providers Care Food Counselor Name Role Phone Nikolay Sandoval MD Primary Care Provider Allergies No known active allergies Medications metoprolol succinate ER (TOPROL-XL) 200 MG 24 hr tablet 0.5 tablets (100 mg total). Patient takes 100mg once a day. 4 Active amLODIPine (NORVASC) 10 MG tablet Oral 4 Active busPIRone (BUSPAR) 30 MG tablet Oral 4 Active Continuous Glucose Sensor (FREESTYLE KAYLA 2 SENSOR) [facility] 5 Active ezetimibe (ZETIA) 10 MG tablet Oral 4 Active rosuvastatin (CRESTOR) 40 MG tabletIndications: Mixed hyperlipidemia Take 1 tablet (40 mg total) by mouth nightly at bedtime. 30 tablet 2 5 Active semaglutide (OZEMPIC) 2 mg/dose injection (PEN)Indications:D iabetes Mellitus Inject 2 mg into the skin once a week. Indications: Diabetes 2.5 mL 1 5 Active lisinopril (PRINIVIL) 10 MG tabletIndications: Hypertension, unspecified type Take 4 tablets (40 mg total) by mouth daily. 120 tablet 1 5 Active pioglitazone (ACTOS) 30 MG tabletIndications: Type 2 diabetes mellitus without complication, without long-term current use of insulin ([facility]) Take 1 tablet (30 mg total) by mouth daily. 30 tablet 5 5 Active traMADol (ULTRAM) 50 MG tabletIndications: Chronic Pain Take 1 tablet (50 mg total) by mouth every 6 (six) hours as needed for Pain. Indications: Chronic Pain 120 tablet 5 Active pioglitazone (ACTOS) 30 MG tablet Take 1 tablet (30 mg total) by mouth daily. 025 Discontin ued(Reord er) traMADol (ULTRAM) 50 MG tabletIndications: Chronic Pain Take 1 tablet (50 mg total) by mouth every 6 (six) hours as needed for Pain. Indications: Chronic Pain 120 tablet 5 025 Discontin ued(Reord er) Encounters Date Type Department Care Team Description 11/24/[address] [address] Nikolay Sandoval MD Refill Request 10/31/[address] [address] Nikolay Sandoval MD Medication 10/24/[address] [address] Nikolay Sandoval MD Refill Request 09/19/[address] [address] Nikolay Sandoval MD Refill Request 09/14/[address] [address] Nikolay Sandoval MD Refill Request from Last 3 Months Immunizations Immunization Administration [...] Comments Blood Pressure 121/86 08/09/2024 10:18 AM GIFT SHOP CLERK Pulse 84 08/09/2024 10:18 AM GIFT SHOP CLERK Temperature 37 C (98.6 F) 08/09/2024 10:18 AM GIFT SHOP CLERK Respiratory Rate - - Oxygen Saturation 97% 08/09/2024 10:18 AM GIFT SHOP CLERK Inhaled Oxygen Concentration - - Weight 89.4 kg (197 lb) 08/09/2024 10:18 AM GIFT SHOP CLERK Height 167.6 cm (5' 6) 08/09/2024 10:18 AM GIFT SHOP CLERK Body Mass Index 31.8 08/09/2024 10:18 AM GIFT SHOP CLERK Plan of Treatment Health Maintenance Due Date [...] , 01/17/2022, Additional history exists PHQ-2 (Physician [place]) Completed 08/09/2024 Meningococcal B Vaccine Aged Out [...] (07/21/2024) Anatomical Region Laterality Modality Other 07/21/2024 [facility] Scanned SCANNING Final Resu lt * COLONOSCOPY GENERIC (SCAN ORDER) (01/19/2024) 01/19/2024 us [facility] Scanned SCANNING Final Resu lt from Last 3 Months or Most Recently Relevant to Health Maintenance Insurance [facility] Care Teams Food Counselor Relationship Specialty Start Date End Date Nikolay Sandoval MD [address] [place] [id number] PCP - General FAMILY PRACTICE 08/09/24
--- OUTSIDE RECORDS SUMMARY | 2024-12-15 08:17 | XMS_ITS | Encounter Summary ---
Author Organization [facility] Address [facility] [place] [address] Care Team Providers Care Satellite Specialist Name Role Phone Nikolay Sandoval MD Primary Care Provider Encounter Details Date Type Department Care Team (Late st Contact Info) Description 09/06/2024 ProPublicat Message Enc [facility] Family Medicine - [place] [phone] Nikolay Sandoval MD [address] [place] [address] [phone] Colonoscopy Social History Tobacco Use Types Packs/Day [...] on filedocumented in this encounter Care Teams Satellite Specialist Relationship Specialty Start Date End Date Nikolay Sandoval MD [address] [place] [address] [phone] PCP - General FAMILY PRACTICE 08/09/24 documented as of this encounter
[2024-12-15 08:18] VITALS: BP 103/68; PULSE 85; RESP 18; TEMP 36.4; O2SAT 99
--- NOTE | 2024-12-15 08:24 | ED.FEMALEGU ---
HPI - Female Genitourinary General Chief complaint: Urogenital-Female Stated complaint: Skin/Abscess/Foreign Body Source: patient and RN notes reviewed Mode of arrival: ambulatory Limitations: no limitations History of Present Illness HPI Narrative: 64-year-old female presented for complaint of pain to the periarea of for 2 days. States she thinks she has a Bartholin's cyst which she has had in the past. She has been using Sitz bath. She denies irregular vaginal bleeding, discharge, nausea vomiting, diarrhea, constipation or urinary complaints. Has not seen Obgyn for many years. Related Data Home Medications ?Medication ?Instructions ?Recorded ?Confirmed ?Last Taken ?Type lisinopril 10 mg tablet 10 mg PO DAILY 02/03/23 01/04/24 Unknown History quetiapine 100 mg tablet 100 mg PO HS 02/03/23 01/04/24 Unknown History tramadol 50 mg tablet 50 mg PO TID PRN Pain 02/03/23 01/04/24 Unknown History semaglutide 2 mg/dose (8 mg/3 mL) 2 mg subcut WEEKLY 12/24/23 01/04/24 Unknown History subcutaneous pen injector (Ozempic) amlodipine 10 mg tablet 10 mg PO DAILY 01/04/24 01/04/24 Unknown History ezetimibe 10 mg tablet 10 mg PO DAILY 01/04/24 01/04/24 Unknown History rosuvastatin 40 mg tablet 40 mg PO HS 01/04/24 01/04/24 Unknown History metoprolol succinate 100 mg mg PO 12/15/24 Unknown History tablet,extended release 24 hr pioglitazone 30 mg tablet mg 12/15/24 Unknown History Allergies Allergy/AdvReac Type Severity Reaction Status Date / Time No Known Allergies Allergy Verified 12/15/24 08:31 Review of Systems Review of Systems: CONSTITUTIONAL: Denies body aches, fever, chills, or sweats. CARDIOVASCULAR: Denies chest pain, palpitations, or edema. RESPIRATORY: Denies cough or dyspnea. GASTROINTESTINAL: Denies abdominal pain, nausea, vomiting, or diarrhea. GENITOURINARY: Reports felicia area discomfort. Denies dysuria, frequency, urgency, hematuria, flank pain, discharge SKIN: Denies rash, itching, or wounds. MUSCULOSKELETAL: Denies back pain or myalgia. [facility], [facility] Past Medical History Medical History (Updated 06/19/25 @ 08:40 by ELSIE Parnell Colon cancer screening Arthritis Depression Anxiety Morbid obesity with BMI of 50.0-59.9, adult HLD (hyperlipidemia) HTN (hypertension) Diabetes type 2, controlled Social History Social History Smoking status: Never smoker Alcohol intake: never Substance use: never Substance use type: does not use Living arrangements: with family Spiritual care concerns: No Comments At time of signature, I have reviewed and agree with nursing past medical, surgical, social and family history unless otherwise noted. Please see nursing chart for further information. There is no relevant family history pertinent to the presenting complaint Exam Narrative: GENERAL: appears in discomfort, no acute distress. ENT: Mucous membranes pink and moist. NECK: Normal AROM. CHEST: No respiratory distress. Clear to auscultation. HEART: Regular rate and rhythm. ABDOMEN: Soft, nontender, nondistended, normal active bowel sounds. : Right labia majora with abscess 1.5cm diameter, extremely tender with light palpation, minimal fluctuance, scant active purulent drainage. SKIN: Warm, dry NEURO: No focal deficits. Alert and oriented x3. Gait steady. PSYCH: Normal affect. Course Course Emergency Course: Patient is aware of diagnosis, understands and agrees to treatment plan. Anticipatory guidance given. Patient agrees to follow-up as directed and is aware of reasons to seek care at the emergency department. Portions of this record may have been created with voice recognition software Level of Care: Express Care Visit Vital Signs Vital signs: Vital Signs Temperature 97.5 F L 12/15/24 08:18 Pulse Rate 85 12/15/24 08:18 Respiratory Rate 18 12/15/24 08:18 Blood Pressure 103/68 12/15/24 08:18 Pulse Oximetry 99 12/15/24 08:18 Oxygen Delivery Room Air 12/15/24 08:18 Temperature 97.5 F L 12/15/24 08:18 Pulse Rate 85 12/15/24 08:18 Respiratory Rate 18 12/15/24 08:18 Blood Pressure 103/68 12/15/24 08:18 Pulse Oximetry 99 12/15/24 08:18 Oxygen Delivery Room Air 12/15/24 08:18 Reviewed MDM - Female Genitourinary MDM Narrative Medical decision making narrative: Discussed physical exam findings c/w labial abscess, active drainage. Shared decision making, pt elected to defer I&D attempt at this time. She will start abx and if no improvement 24-48 hours she will return/ER. Says she has not seen Obgyn in several years, but will f/u with pcp. Advised supportive measures and signs/symptoms to go to the ER. Pt is appropriate for outpt treatment and f/u. Differential Diagnosis Differential diagnosis: Likely urinary tract infection, bacterial vaginosis, cervicitis, vaginitis, ruptured ovarian cyst, cyst of Bartholin's gland, cystitis and other (abscess) Discharge Plan Discharge Clinical Impression: Abscess Patient Disposition: Home Condition: Stable Instructions: Antibiotic Form, Abscess (ED) Additional Instructions: Cleanse area with warm soapy water Recommend sitz baths or Warm compresses at least 4 times a day to the site to help expel any additional drainage. Keep your wound covered while draining Take antibiotic as directed - you may take a probiotic such as Align, lactobacillus or Activia yogurt. Tylenol and ibuprofen every 8 hours for pain as needed Follow up with your primary care physician in 2 days for a wound check. Go to the Emergency Department immediately for any worsening symptoms or concerns: Fevers, Increased redness, pain, or swelling, vomiting etc Patient Language: Bhutanese Prescriptions: New clindamycin HCl [Cleocin HCl] 300 mg capsule 300 mg PO Q8H 10 Days Qty: 30 0RF No Action tramadol 50 mg tablet 50 mg PO TID PRN (Reason: Pain) quetiapine 100 mg tablet 100 mg PO HS lisinopril 10 mg tablet 10 mg PO DAILY metoprolol succinate 100 mg tablet extended release 24 hr PO pioglitazone 30 mg tablet Ozempic 2 mg/dose (8 mg/3 mL) pen injector 2 mg SUBCUT WEEKLY Patient Comments: takes on tuesdays rosuvastatin 40 mg tablet 40 mg PO HS ezetimibe 10 mg tablet 10 mg PO DAILY amlodipine 10 mg tablet 10 mg PO DAILY Follow-up/Referrals: Jaime,Nikolay Suazo [Other]
== END 2024-12-15 08:44 | disposition home or self-care (01) ==
PROVIDERS: Emergency Provider Nurse Practitioner Family
DX: N76.4 Abscess of vulva (principal); E11.9 Type 2 diabetes mellitus without complications; Z79.85 Long-term (current) use of injectable non-insulin antidiabetic drugs; I10 Essential (primary) hypertension; E78.5 Hyperlipidemia, unspecified; E66.01 Morbid (severe) obesity due to excess calories; Z68.34 Body mass index [BMI] 34.0-34.9, adult; M19.90 Unspecified osteoarthritis, unspecified site
CPT/HCPCS: 99213; G0463

== ENCOUNTER 2025-02-28 18:42 | Emergency (ER) | payer OTHER, SELFPAY ==
[2025-02-28 18:57] VITALS: BP 107/85; PULSE 99; RESP 18; TEMP 36.4; O2SAT 100
--- NOTE | 2025-02-28 19:15 | ED.SKABFB ---
HPI - Skin/Abscess/Foreign Bdy General Chief complaint: Skin/Abscess/Foreign Body Stated complaint: itchy all over body Time Seen by Provider: 02/28/25 19:15 Source: patient and RN notes reviewed Mode of arrival: ambulatory Limitations: no limitations History of Present Illness HPI narrative: 64-year-old female presents Express Care complaining of itchiness all over for last week. Patient denies any rash, changes in medications, diet, fragrance, lotions, detergents, or any changes in her in daily habits. Patient has been taking a daily antihistamine with some relief however she still gets itchiness. Patient reports having history of diabetes. Patient denies any other symptoms or sick symptoms, fevers, aches, chills, chest pain, difficulty breathing. Related Data Home Medications ?Medication ?Instructions ?Recorded ?Confirmed ?Last Taken ?Type lisinopril 10 mg tablet 10 mg PO DAILY 02/03/23 01/04/24 Unknown History quetiapine 100 mg tablet 100 mg PO HS 02/03/23 02/28/25 Unknown History tramadol 50 mg tablet 50 mg PO TID PRN Pain 02/03/23 02/28/25 Unknown History semaglutide 2 mg/dose (8 mg/3 mL) 2 mg subcut WEEKLY 12/24/23 02/28/25 Unknown History subcutaneous pen injector (Ozempic) amlodipine 10 mg tablet 10 mg PO DAILY 01/04/24 02/28/25 Unknown History ezetimibe 10 mg tablet 10 mg PO DAILY 01/04/24 02/28/25 Unknown History rosuvastatin 40 mg tablet 40 mg PO HS 01/04/24 02/28/25 Unknown History metoprolol succinate 100 mg mg PO 12/15/24 Unknown History tablet,extended release 24 hr pioglitazone 30 mg tablet mg 12/15/24 Unknown History blood-glucose sensor (FreeStyle 02/28/25 02/28/25 Unknown History Deyvi 2 Plus Sensor device) Allergies Allergy/AdvReac Type Severity Reaction Status Date / Time No Known Allergies Allergy Verified 02/28/25 18:44 Review of Systems Review of Systems: CONSTITUTIONAL: Denies fever, chills, or sweats. EYES: Denies visual changes, redness, or discharge. ENT: Denies rhinorrhea, congestion, sore throat, or otalgia. CARDIOVASCULAR: Denies chest pain, palpitations, or edema. RESPIRATORY: Denies cough or dyspnea. GASTROINTESTINAL: Denies abdominal pain, nausea, vomiting, or diarrhea. GENITOURINARY: Denies dysuria or hematuria. SKIN: Denies rash. Positive for itching. MUSCULOSKELETAL: Denies back pain, joint pain, or myalgia. NEUROLOGIC: Denies headache, numbness, or weakness. PSYCHIATRIC: Denies anxiety or depression. All other systems reviewed are negative, except as documented in HPI. [facility] Past Medical History Medical History Colon cancer screening Arthritis Depression Anxiety Morbid obesity with BMI of 50.0-59.9, adult HLD (hyperlipidemia) HTN (hypertension) Diabetes type 2, controlled Social History Social History Smoking status: Never smoker Alcohol intake: never Substance use: never Substance use type: does not use Living arrangements: with family Spiritual care concerns: No Comments At the time of my signature, I reviewed and agree with the nursing past medical, surgical, social, and family history. There is no relevant family history pertinent to the patient complaint. Exam Narrative: GENERAL: This is a well-nourished, well-developed adult, in no apparent distress. They are non ill-appearing, nontoxic appearing. HEAD: normocephalic, atraumatic. EYES: Sclera clear/white. Conjunctiva normal. Vision is grossly intact. Extraocular movements intact EARS: External ears normal, Hearing grossly intact. NOSE: External nose normal THROAT: Mucous membranes moist, NECK: Neck supple CARDIOVASCULAR: Regular rate and rhythm RESPIRATORY: Respiratory rate normal, respiratory effort nonlabored, no respiratory distress SKIN: warm, Dry, intact with no suspicious lesions or rash, good texture and turgor. NEURO: awake, alert, and oriented to person, place and time. There were no obvious focal neurologic abnormalities. EXTREMITIES: No joint tenderness, effusion, or edema noted. Course Course Emergency Course: Portions of this record may have been created with voice recognition software Level of Care: Express Care Visit Vital Signs Vital signs: Vital Signs Temperature 97.5 F L 02/28/25 18:57 Pulse Rate 99 02/28/25 18:57 Respiratory Rate 18 02/28/25 18:57 Blood Pressure 107/85 02/28/25 18:57 Pulse Oximetry 100 02/28/25 18:57 Oxygen Delivery Room Air 02/28/25 18:57 Temperature 97.5 F L 02/28/25 18:57 Pulse Rate 99 02/28/25 18:57 Respiratory Rate 18 02/28/25 18:57 Blood Pressure 107/85 02/28/25 18:57 Pulse Oximetry 100 02/28/25 18:57 Oxygen Delivery Room Air 02/28/25 18:57 Reviewed MDM - Skin/Abscess/Foreign Bdy MDM Narrative Medical decision making narrative: Unclear cause of patient's pruritus. No rashes identified. Recommend patient continue taking a daily antihistamine will prescribe a short course of hydroxyzine. Advised patient to follow-up PCP for further evaluation. Discussed physical exam findings. Advised supportive measures and signs/symptoms to go to the ER. Pt is appropriate for outpt treatment and f/u. Differential Diagnosis Differential diagnosis: Likely other (Pruritus, chronic illness, dry skin) Critical Care Time Critical Care Time Critical Care Time: No Discharge Plan Discharge Clinical Impression: Pruritus Patient Disposition: Home Condition: Stable Instructions: Itchy Skin (ED) Additional Instructions: You may use calamine lotion, camphor, hydrocortisone cream, Benadryl cream as needed for itchiness symptoms. Apply to the affected areas use as directed according to the instructions on the bottle. Take a daily antihistamine such as Zyrtec, Claritin, Kym, follow instructions on the bottle. Use the hydroxyzine as directed. Hydroxyzine may make you drowsy is a do not drive or operate machinery while taking this medication. Do not combine this medication with Benadryl or any other sedating medications. Follow-up PCP in 3-5 days. If you develop any worsening redness, swelling, discharge, fevers, breathing problems, or any other concerns please go to the ER immediately. Patient Language: Estonian Prescriptions: New hydroxyzine HCl 25 mg tablet 25 mg PO TID PRN (Reason: itching) Qty: 20 0RF No Action tramadol 50 mg tablet 50 mg PO TID PRN (Reason: Pain) quetiapine 100 mg tablet 100 mg PO HS lisinopril 10 mg tablet 10 mg PO DAILY metoprolol succinate 100 mg tablet extended release 24 hr PO pioglitazone 30 mg tablet Ozempic 2 mg/dose (8 mg/3 mL) pen injector 2 mg SUBCUT WEEKLY Patient Comments: takes on tuesdays (DME) [employer] Deyvi 2 Plus Sensor Device MISCELLANEOUS rosuvastatin 40 mg tablet 40 mg PO HS ezetimibe 10 mg tablet 10 mg PO DAILY amlodipine 10 mg tablet 10 mg PO DAILY Follow-up/Referrals: Jaime,Nikolay [Other] Time of Disposition: 19:17
== END 2025-02-28 19:20 | disposition home or self-care (01) ==
DX: L29.9 Pruritus, unspecified (principal); I10 Essential (primary) hypertension; E11.9 Type 2 diabetes mellitus without complications; Z79.85 Long-term (current) use of injectable non-insulin antidiabetic drugs; E78.5 Hyperlipidemia, unspecified; M19.90 Unspecified osteoarthritis, unspecified site; E66.01 Morbid (severe) obesity due to excess calories; Z68.33 Body mass index [BMI] 33.0-33.9, adult; F32.A Depression, unspecified
CPT/HCPCS: 99213; G0463